=== PATIENT | female | born 1940 | race Caucasian/White ===

== ENCOUNTER 2018-06-07 11:54 | Inpatient (IN) | payer MEDICARE ==
[~2018-06-07] VITALS: Ht 170.2 cm; Wt 125.1 kg
[2018-06-07 12:39] LABS: BASOPHILS 0.3 % (0-2); EOSINOPHILS 3.7 % (0-7); HEMATOCRIT 47.8 % (36.0-48.0); HEMOGLOBIN 15.7 g/dL (12-16); IMMATURE GRANULOCYTES 0.1 % (0-5); LYMPHOCYTES 9.4 % (15-50); MCH 31.2 pg (26.0-34.0); MCHC 32.8 g/dL (31.0-37.0); MEAN PLATELET VOLUME 11.8 fL (7.4-10.4); NEUTROPHILS 76.5 % (40-80); PLATELET COUNT 169 10x3/uL (130-400); RBC 5.03 10x6/uL (4.00-5.40); RDW 13.6 % (11.5-14.5); WBC 6.7 10x3/uL (4.8-10.8)
[2018-06-07 13:04] LABS: ALBUMIN 3.1 g/dL (3.4-5.0); ANION GAP 12.4 mmol/L (8-16); BILIRUBIN - TOTAL 1.76 mg/dL (0.2-1.3); CALCIUM 9.4 mg/dL (8.5-10.1); CARBON DIOXIDE 26.5 mmol/L (21.0-32.0); POTASSIUM - SERUM 3.9 mmol/L (3.5-5.1); PROTEIN - SERUM 7.3 g/dL (6.4-8.2)
[2018-06-07 13:06] LABS: TROPONIN-I 0.052 ng/mL (0.000-0.060)
[2018-06-07 14:00] VITALS: BP 165/61
[2018-06-07 16:00] VITALS: BP 152/79
--- NOTE | 2018-06-07 16:01 | NUR ---
PATIENT REFUSED [facility] CATH
[2018-06-07 18:00] VITALS: BP 141/97
--- NOTE | 2018-06-07 20:00 | NUR ---
LASHAWN COMPLETED AT THIS TIME
--- NOTE | 2018-06-07 22:33 | NUR ---
VANCOMYCIN COMPLETED AT THIS TIME
--- NOTE | 2018-06-07 22:55 | NUR ---
REPORT FROM ISABELLE GARCIA RN
--- NOTE | 2018-06-08 03:20 | NUR ---
LYING IN BED, RESPIRATIONS EVEN AND UNLABORED. CALL LIGHT IN REACH, WILL CONTINUE WITH PLAN OF CARE.
[2018-06-08 04:00] VITALS: BP 198/103
[2018-06-08 06:43] LABS: BASOPHILS 0.3 % (0-2); EOSINOPHILS 3.2 % (0-7); HEMATOCRIT 44.7 % (36.0-48.0); HEMOGLOBIN 14.6 g/dL (12-16); IMMATURE GRANULOCYTES 0.1 % (0-5); LYMPHOCYTES 6.8 % (15-50); MCH 30.9 pg (26.0-34.0); MCHC 32.7 g/dL (31.0-37.0); MCV 94.7 fL (80.0-100.0); MEAN PLATELET VOLUME 12.1 fL (7.4-10.4); MONOCYTES 10.2 % (2-11); NEUTROPHILS 79.4 % (40-80); PLATELET COUNT 186 10x3/uL (130-400); RBC 4.72 10x6/uL (4.00-5.40); RDW 13.8 % (11.5-14.5); WBC 7.2 10x3/uL (4.8-10.8)
[2018-06-08 07:34] LABS: ALBUMIN 2.9 g/dL (3.4-5.0); ANION GAP 13.7 mmol/L (8-16); BILIRUBIN - TOTAL 1.66 mg/dL (0.2-1.3); CALCIUM 9.4 mg/dL (8.5-10.1); CARBON DIOXIDE 27.1 mmol/L (21.0-32.0); CREATININE - SERUM 0.9 mg/dL (0.6-1.3); POTASSIUM - SERUM 3.8 mmol/L (3.5-5.1); PROTEIN - SERUM 6.9 g/dL (6.4-8.2)
--- NOTE | 2018-06-08 07:45 | NUR ---
AM ROUNDS COMPLETED. INTRODUCED MYSELF TO PT PRIMARY RN FOR TODAYS SHIFT. PT IS A&O SITTING UP IN BED RESTING QUIETLY WAITING ON BREAKFAST. SHIFT ASSESSMENT COMLETED. RR APPEAR LABORED BUT PT STATES SHE IS BREATHING FINE. WHEEZING NOTED THROUGHOUT ALL LOBES AND CAN BE HEARD OUTSIDE CHEST WELL. PT DENIES BEING ABLE TO COUGH UP ANYTHING. PT HAS NC @3L THAT SHE KEEPS TAKING OFF, ENCOURAGED HER TO KEEP IT ON AND SHE STATES IT DOESNT HELP BUT SHE WILL KEEP IT ON. BILAT LE ARE VERY SWOLLEN AND THE LEFT ONE IS REDDENED BUT SKIN INTACT. WILL TRY TO ELEVATE TO HELP REDUCE SWELLING. PT DENIES ANY CURRENT NEEDS AT THIS TIME. CL IN REACH, BED IN LOWEST, SIDE RAILS X2. WILL CTM.
[2018-06-08 08:45] VITALS: BP 126/87
--- NOTE | 2018-06-08 10:29 | NUR ---
PT CONTINUOUSLY PULLING HER OXYGEN OFF AND STATES SHE DOESNT NEED IT. PULSE OX DOWN TO 86% TOLD PT ITS IMPORTANT FOR HER TO WEAR IT AND SHE STATES "WELL IM NOT GOING TO ALL THE TIME ITS MY SINUS STUFF AND OXYGEN MAKES ME NOT BREATHE" HARD TO RATIONALIZE WITH PT IS CONSTANTLY ARGUING WITH EVERYTHING WE SAY AND TRY TO DO. PT IS VERY RUDE AND NONCOMPLIANT. WILL CONTINUE TO TRY OUR BEST WITH WHAT SHE WILL ALLOW.
[2018-06-08 12:13] VITALS: BP 154/88
--- NOTE | 2018-06-08 13:29 | NUR ---
PT CALLED REQUESTING BEDPAN. ASSISTED PT ON AND SHE HAD SEMI FORMED AND SEMI LOOSE BROWN STOOL. PTS JANELLE AREA/GROIN IS VERY EXCORIATED AND REDDENED SHE IS REFUSING TO LET US GIVE HER A BATH RIGHT NOW AND STATES SHE NEEDS AT CREAM FOR IT HOWEVER ITS ALREADY MOIST AND NEEDS TO DEFINITELY BE DRY AND KEEP CLEAN AND DRY. PT IS VERY PARTICULAR AND REFUSES WHAT WE NEED TO DO. EXPLAINATION AND RISK FOR WORSENING SKIN/BREAKDOWN HAS BEEN TAUGHT WILL ENCOURAGE BETTER HYGIENE AND SKIN CARE. PT SITTING UP IN BED WAITING ON BREATHING TX STILL WHEEZING ALL OVER. PT AGREED TO WEAR O2 FOR NOW. NC @3.5L IN PLACE. WILL CTM.
--- NOTE | 2018-06-08 13:36 | NUR ---
PT IS BEING UNREASONABLE. THREW DIRTY LINENS AT THE CREATIVE GURU AND YELLED AT HER AND WILL NOT ALLOW HER TO PERFORM THE TEST WE NEED FOR HER LEGS. EXPLAINED MULTIPLE TIMES THE REASONING AND ASKED IF THE PT WANTS OUR HELP AND SHE STATES "YES BUT YOUR NOT DOING THAT TEST, SO LEAVE ME ALONE" WILL DISCUSS WITH PRIMARY AND SEE IF THEY CAN REASON WITH HER SHE IS CONSTANTLY FIGHTING US FOR THE MOST BASIC THINGS AND DOESNT APPEAR TO WANT OUR HELP.
[2018-06-08 15:33] VITALS: BMI 39.1
[2018-06-08 16:12] VITALS: BP 136/85
--- NOTE | 2018-06-08 16:15 | NUR ---
REFUSED SCD'S PER MAYITO/RN
--- NOTE | 2018-06-08 16:32 | NUR ---
PT HAD HER OXYGEN OFF AGAIN AND STATES "WELL I WAS SLEEPING, I DONT KNOW" PT ALLOWED ME TO PUT IT BACK ON. NC @3.5L IN PLACE. NO CURRENT NEEDS. WILL CTM.
--- NOTE | 2018-06-08 17:18 | NUR ---
PTS L.AC PIV IS LEAKING AND FELL OUT. D/C WITH CATHETER TIP FULLY INTACT. PT IS REFUSING FOR ME TO PLACE A NEW PIV AT THIS TIME. SHE IS ALSO WHEEZING AND APPEARS LABORED WITH RR HOWEVER IS YELLING AT ME "LEAVE ME ALONE FOR A MINUTE I DONT WANT CONNECTED YOU CAN DO IT LATER" PT IS REFUSING TO WEAR HER OXYGEN AND ALLOW ME TO PLACE NEW PIV AT THIS TIME. PRIMARY ON FLOOR WILL NOTIFY THEM AND TRY AGAIN IN A LITTLE BIT.
--- NOTE | 2018-06-08 17:45 | NUR ---
AT BEDSIDE DISCUSSING IN LENGTH DISEASE PROCESS AND HOW IMPORTANT TREATMENT AND COOPERATION IS. PT STATES "WELL I LEFT MY ASSHOLE AND IM NOT PUTTING UP WITH HER EITHER" SHE POINTED AT ME. EXPLAINED TO PT THAT I CAN HAVE HER HAVE A DIFFERENT NURSE TOMORROW. PT AGREED TO ALLOW SOMEONE ELSE TO STICK HER. WILL HAVE SOMEONE COME.
--- NOTE | 2018-06-08 18:25 | NUR ---
PT SOILED ALL OF HER LINENS. PHARMACY DISTRICT MANAGER AT BEDSIDE AND CLEANED HER UP AND CHANGED OUT ALL LINENS. PT VOICED THANKS AND DENIES ANY FURTHER NEEDS AT THIS TIME. CL IN REACH, BED IN LOWEST, SIDE RAILS X2. WILL CTM.
--- NOTE | 2018-06-08 18:51 | NUR ---
22 GUAGE PIV STARTED TO R.FA X1 STICK BY JACLYN ESPINOSA. PT NOW RECIEVING HER ANBX. DENIES ANY CURRENT NEEDS. WILL CTM.
[2018-06-08 19:38] LABS: INR 1.32 (0.85-1.17); PROTIME 15.9 SECONDS (11.6-15.0)
[2018-06-08 19:39] LABS: APTT 36.9 SECONDS (22.8-39.4)
[2018-06-08 20:00] VITALS: BP 137/70
--- NOTE | 2018-06-08 20:15 | NUR ---
PT SITTING UP IN BED ALERT AND ORIENTED. PT STATES SHE WILL PUT OXYGEN ON IN A MINUTE. PT STATES SHE CAN'T BREATH WITH IT ON.PT SAT. 88% EDUCATED PT ON THE IMPORTANCE OF WEARING O2. PT UNDERSTANDS. RESPIRATORY IN GIVING UPDRAFT AND ENCOURGED AND EDUCATED PT ON WAERING O2. PT REFUSING TO KEEP ON. BED LOW CALL LIGHT WITHIN REACH. WILL CONTINUE TO MONITOR.
--- NOTE | 2018-06-08 20:42 | NUR ---
20G MICHELLE ESTABLISHED IN LEFT WRIS X 1 STICK. IV PATENT, SALINE LOCKED, SWAB CAP IN USE. WAS ABLE TO GET PT TO PUT O2 ON. O2 SAT 97%. PT DENIES ANY NEEDS OR PAIN AT THIS TIME. WILL CONTINUE YO MONITOR.
--- NOTE | 2018-06-08 22:44 | NUR ---
PT REFUSES TO GO TO CTA. EDUCATED PT ON THE IMPORTANCE OF SCAN. PT STATES UNDERSTANDING. PT REFUSED FOR CT ALSO. PT SITTING UP IN BED REFUSING TO WEAR O2. EDUCATED PT ON IMPORTANCE OF O2. BED LOW CALL LIGHT WITHIN REACH. WILL CONTINUE TO MONITOR.
[2018-06-09] VITALS: BP 130/68
[2018-06-09 04:00] VITALS: BP 164/68
--- NOTE | 2018-06-09 04:22 | NUR ---
PT AWAKE ALERT AND ORIENTED SITTING UP IN BED. PT DENIES ANY NEEDS OR PAIN AT THIS TIME. BED LOW CALL LIGHT WITHIN REACH. WILL CONTINUE TO MONITOR.
[2018-06-09 05:45] LABS: BASOPHILS 0.5 % (0-2); EOSINOPHILS 1.7 % (0-7); HEMATOCRIT 43.1 % (36.0-48.0); IMMATURE GRANULOCYTES 0.3 % (0-5); MCHC 32.5 g/dL (31.0-37.0); MCV 95.6 fL (80.0-100.0); MEAN PLATELET VOLUME 12.3 fL (7.4-10.4); MONOCYTES 10.7 % (2-11); NEUTROPHILS 78.8 % (40-80); PLATELET COUNT 173 10x3/uL (130-400); RBC 4.51 10x6/uL (4.00-5.40); WBC 6.6 10x3/uL (4.8-10.8)
[2018-06-09 06:21] LABS: ALBUMIN 2.9 g/dL (3.4-5.0); ANION GAP 14.4 mmol/L (8-16); BILIRUBIN - TOTAL 1.81 mg/dL (0.2-1.3); C-REACTIVE PROTEIN 5.2 mg/dL (0.0-0.9); CALCIUM 9.2 mg/dL (8.5-10.1); CARBON DIOXIDE 27.2 mmol/L (21.0-32.0); CHOL - HDL RATIO 3.1 ratio (2.3-4.1); CREATININE - SERUM 1.1 mg/dL (0.6-1.3); LDL-HDL RATIO 1.7 ratio (1.5-3.5); POTASSIUM - SERUM 3.6 mmol/L (3.5-5.1); PROTEIN - SERUM 6.8 g/dL (6.4-8.2)
--- NOTE | 2018-06-09 07:26 | NUR ---
AM ROUNDS COMPLETED. INTRODUCED MYSELF TO PT PRIMARY RN FOR TODAYS SHIFT. PT IS A&O RESTING QUIETLY IN BED AT THIS TIME. SHIFT ASSESSMENT COMPLETED. WILL REVIEW CHART AND PULL MORNING MEDICATIONS AND CPOC. NO CURRENT NEEDS. CL IN REACH.
--- NOTE | 2018-06-09 08:00 | NUR ---
PT APPARENTLY REFUSED CTA LAST NIGHT BUT NOW IS IN AGGREEANCE. PT LEAVING FOR CT SCAN NOW. NO CURRENT NEEDS.
[2018-06-09 08:04] LABS: ERYTHROCYTE SEDIMENTATION RATE 39 mm/hr (0-30)
--- NOTE | 2018-06-09 08:29 | NUR ---
PT BACK FROM CT AND I RECONNECTED HER TO HER IV ANBX INFUSING VIA R.FA PIV. PT IS WHEEZING THROUGHOUT ALL LOBES AND IS APPEARS TO BE LABORED BREATHING NC @3.5L IN PLACE PT STATES SHE CANT BREATHE WHEN LYING FLAT BUT FEELS LIKE SHE IS BREATHING OKAY RIGHT NOW. PULSE OX 93% WILL CHECK WITH RT ABOUT PRN TREATMENTS OR NEXT DOSE. PT VOICED THANKS. PT SITTING ERECT IN BED DENIES ANY CURRENT NEEDS BUT WANTS TO STAY SITTING UP. CL IN REACH, BED IN LOWEST, SIDE RAILS X2. PT STILL NPO WILL DISCUSS WITH FOR PLANS AND SEE ABOUT SURGERY PLANNING OR GAME PLAN.
[2018-06-09 08:45] VITALS: BP 181/81
[2018-06-09 09:22] VITALS: Ht 170.2 cm; Wt 125.1 kg
--- NOTE | 2018-06-09 10:21 | NUR ---
NEW ORDERS OBTAINED FOR HEPARIN DRIP. CANT START UNTIL APTT, HAS BEEN DRAWN STAT ORDERS ARE IN SINCE 10AM AND STILL NOT DONE. PAGED LAB AND THEY STATE SOMEONE WILL BE BY SHORTLY!
[2018-06-09 11:13] LABS: APTT 31.6 SECONDS (22.8-39.4); INR 1.22 (0.85-1.17); PROTIME 14.9 SECONDS (11.6-15.0)
[2018-06-09 11:14] VITALS: BP 161/77
--- NOTE | 2018-06-09 11:35 | NUR ---
FINALLY REC'D RESULTS FROM LAB AND CAN START HEPARIN DRIP. INITIATED DRIP @8ML/HR ORDERED 800UNITS. INFUSING VIA L.HAND PIV, ALSO INITIATED 3000 UNIT BOLUS FOR APTT >40. WILL FOLLOW DRIP PROTOCOL AND CPOC.
[2018-06-09 12:07] LABS: HEMATOCRIT 41.8 % (36.0-48.0); HEMOGLOBIN 13.6 g/dL (12-16); MCHC 32.5 g/dL (31.0-37.0); MCV 95.2 fL (80.0-100.0); MEAN PLATELET VOLUME 11.5 fL (7.4-10.4); RBC 4.39 10x6/uL (4.00-5.40); RDW 13.8 % (11.5-14.5); WBC 6.5 10x3/uL (4.8-10.8)
--- NOTE | 2018-06-09 14:01 | NUR ---
PT RESTING QUIETLY IN BED WITH EYES CLOSED. RR NONLABORED WITH NC @4L IN PLACE. HEPARIN DRIP INFUSING STILL WITH NO ISSUES. NO CURRENT NEEDS. WILL CTM.
--- NOTE | 2018-06-09 14:45 | NUR ---
BLASTING ENTRY SPECIALIST NOTIFIED ME THAT PT IS YELLING AT THEM AND REFUSING VITAL SIGNS AND CARE AND STATING SHE IS CALLING THE ASSISTANT PRESSMAN BECAUSE WE ARENT FEEDING HER ETC. UPON ENTERING ROOM I WAS ABLE TO CALM PT DOWN. SHE IS VERY EMOTIONAL AND JUST OVERWHELMED. C/O BEING NPO I EXPLAINED IN DETAIL REASONING AND SHE VERBALIZED UNDERSTANDING BUT STATES SHE DOESNT CARE. WILL PROVIDE ORAL CARE FOR DRY MOUTH AND SEE IF SHE WILL COOPERATE. NO CURRENT NEEDS. WILL CTM.
--- NOTE | 2018-06-09 15:11 | NUR ---
SIMA WITH CT CALLED TO INFORM ME THAT PT CANT HAVE CT OF ABDOMEN TODAY R/T TOO MUCH CONTRAST FOR THE DAY. THEY WILL PUT ON SCHEDULE FOR TOMORROW.
--- NOTE | 2018-06-09 15:56 | NUR ---
ROUNDING AND STATES PT CAN EAT AND DRINK. ORDERS PLACED. WILL CTM.
--- NOTE | 2018-06-09 16:08 | NUR ---
MRI STAFF CALLED INQUIRING IF THE MRI THAT WAS ORDERED CAN BE DONE TOMORROW. DISCUSSED WITH PRIMARY AND THIS TEST IS NOT STAT AND IS ABLE TO BE MOVED IF IT HAS TOO.
--- NOTE | 2018-06-09 17:32 | NUR ---
OT NOTE: PT COMPLETED HYGIENE AND GROOMING TASKS WITH MOD Emily. THANK YOU, ISABEL ANDREW
--- NOTE | 2018-06-09 18:27 | NUR ---
DID NOT COLLECT URINE R/T PT CONTAMINATING SOURCE. DID NOT COLLECT RESPIRATORY PT DID NOT COUGH ANYTHING UP.
--- NOTE | 2018-06-09 18:29 | NUR ---
PAGED LAB PTS TIMED HEPARIN IS OVER AN HOUR LATE, THEY STATE SOMEONE IS COMING SOON. WILL CONTINUE TO WAIT AND DISCUSS WITH PRIMARY THE CONSTANT DELAY IN TIMED COAG STUDIES FOR HEPARIN DRIP.
[2018-06-09 20:00] VITALS: BP 138/73
--- NOTE | 2018-06-09 21:19 | NUR ---
PT'S 20G IV INFILTRATED. IV DC'D WITH CATHETER TIP IN PLACE. PT SITTING UP IN BED ALERT AND ORIENTED. HEPERIN DRIP CHANGED TO RIGHT FOREARM IV. PT DENIES ANY PAIN OR NEEDS AT THIS TIME. BED LOW CALL LIGHT WITHIN REACH. WILL CONTINUE TO MONITOR.
--- NOTE | 2018-06-09 23:37 | NUR ---
LYING IN BED WITH CALL LIGHT IN REACH. WILL CONTINUE TO MONITOR.
[2018-06-10 00:14] VITALS: BP 148/80
[2018-06-10 02:29] LABS: HEMATOCRIT 42.6 % (36.0-48.0); MCH 31.3 pg (26.0-34.0); MCHC 32.9 g/dL (31.0-37.0); MCV 95.1 fL (80.0-100.0); MEAN PLATELET VOLUME 12.3 fL (7.4-10.4); RBC 4.48 10x6/uL (4.00-5.40); RDW 13.8 % (11.5-14.5); WBC 5.7 10x3/uL (4.8-10.8)
[2018-06-10 04:00] VITALS: BP 121/76
[2018-06-10 06:38] LABS: BASOPHILS 0.7 % (0-2); EOSINOPHILS 4.1 % (0-7); HEMATOCRIT 41.8 % (36.0-48.0); HEMOGLOBIN 13.6 g/dL (12-16); IMMATURE GRANULOCYTES 0.2 % (0-5); LYMPHOCYTES 9.5 % (15-50); MCH 30.8 pg (26.0-34.0); MCHC 32.5 g/dL (31.0-37.0); MCV 94.8 fL (80.0-100.0); MEAN PLATELET VOLUME 11.5 fL (7.4-10.4); MONOCYTES 9.3 % (2-11); NEUTROPHILS 76.2 % (40-80); PLATELET COUNT 175 10x3/uL (130-400); RBC 4.41 10x6/uL (4.00-5.40); RDW 13.9 % (11.5-14.5); WBC 5.6 10x3/uL (4.8-10.8)
[2018-06-10 06:45] LABS: INR 1.3 (0.85-1.17); PROTIME 15.6 SECONDS (11.6-15.0)
[2018-06-10 07:00] LABS: ALBUMIN 2.8 g/dL (3.4-5.0); ANION GAP 14.2 mmol/L (8-16); BILIRUBIN - TOTAL 1.92 mg/dL (0.2-1.3); CALCIUM 8.8 mg/dL (8.5-10.1); CARBON DIOXIDE 27.3 mmol/L (21.0-32.0); POTASSIUM - SERUM 3.5 mmol/L (3.5-5.1); PROTEIN - SERUM 6.8 g/dL (6.4-8.2)
[2018-06-10 08:03] VITALS: BP 147/67
[2018-06-10 08:06] LABS: APTT 100.3 SECONDS (22.8-39.4)
--- NOTE | 2018-06-10 08:07 | NUR ---
TALKED WITH PATIENT IN LENGTH ABOUT LUNG MASS BIOPSY. PATIENT DOES NOT WANT THIS UNTIL HER PHYSCIAN SHOWS HER IMAGES OF MASS AND EXPLAINS WHAT ALL HER PROBLEMS ARE AT PRESENT. PATIENT VERY FRUSTRATED ABOUT LACK OF COMMUNICATION FROM HER PHYSCIANS ABOUT HER PRESENT PHYSICAL STATUS. NOTIFIED MAYITO.
--- NOTE | 2018-06-10 08:24 | NUR ---
PT LEAVING FOR CT SCAN NOW. DENIES ANY CURRENT NEEDS.
--- NOTE | 2018-06-10 08:50 | NUR ---
PROVIDED PT WITH AM MEDICATIONS. PT REFUSED HALF OF THEM AND STATES THEY DONT HELP, TEACHING PROVIDED BUT WILL CONTINUE TO ENCOURAGE. PTS RR APPEAR MORE LABORED TODAY AND SHE STATES SHE DOESNT FEEL LIKE SHE CAN GET A COMPLETE DEEP BREATH. LUNGS STILL HAVE WHEEZING THROUGHOUT ALL LOBES WITH RLL VERY DIMINISHED. PTS APTT RESULTED 100.3 WILL HOLD FOR 30MINS AND THEN DECREASE BY 100 UNITS PER HEPARIN PROTOCOL. PT STATES SHE THINKS A FAN WILL HELP PAGED MATERIALS AND THEY WILL PROVIDE ONE. PT VOICED THANKS AND DENIES ANY CURRENT PAIN OR NEEDS AT THIS TIME. CL IN REACH, BED IN LOWEST, SIDE RAILS X2. WILL CPOC.
--- NOTE | 2018-06-10 09:15 | NUR ---
PTS HEPARIN DRIP WAS ON HOLD FOR 30MINS I RESTARTED IT AT DECREASED RATE OF 8ML/HR. WILL CONTINUE WITH HEPARIN DRIP PER PROTOCOL.
[2018-06-10 11:30] VITALS: BP 144/72
[2018-06-10 14:29] LABS: ANA REFLEX - DIRECT Negative (Negative)
[2018-06-10 15:29] VITALS: BP 163/68
--- NOTE | 2018-06-10 15:52 | NUR ---
PT STILL VERY SKEPTICAL AND RESISTANT TO OUR CARE. PT IS TRYING TO REFUSE HER LAB DRAW FOR HER TIMED "APTT" I DISCUSSED WITH HER THE IMPORTANCE AND SHE IS JUST TIRED OF ALL THE LAB DRAWS AND BRUISING FROM IT. I DISCUSSED WITH PRIMARY AND PT AND SHE ALLOWED THIS LAB DRAW BUT IS GOING TO HAVE A PICC LINE PLACED.
--- NOTE | 2018-06-10 15:56 | NUR ---
APTT BACK AND INCREASED DRIP BY 100UNITS. DRIP NOW INFUSING AT 9ML/HR. WILL CONTINUE WITH PROTOCOL.
--- NOTE | 2018-06-10 16:54 | NUR ---
OT NOTE: PT COMPLETED BUE AROM AXS AND BED MOB WITH MIN A. PT WAS DISTRACTED WITH PHONE SERVICE AND PHONE ISSUES. THANK YOU, ISABEL ANDREW
--- NOTE | 2018-06-10 17:32 | NUR ---
CONSENTS OBTAINED FOR PICC LINE AND VASCULAR NURSE AT BEDSIDE PERFORMED PLACEMENT. PT NOW HAS A PICC LINE TO HER L.UPPER ARM. BIOPATCH IN PLACE, DRSG ADHERED TO SKIN. NO CURRENT NEEDS. WILL CTM.
--- NOTE | 2018-06-10 18:17 | NUR ---
DID NOT COLLECT RESPIRATORY SPECIMEN R/T PT NOT ABLE TO PROVIDE IT.
--- NOTE | 2018-06-10 18:45 | NUR ---
PT CALLED NEEDING TO USE BEDPAN. ASSISTED PT ON BEDPAN AND HER LINENS WERE ALREADY SOILED. PT STATES SHE WENT EARLIER BUT DIDNT WANT US TO CHANGE HER BECAUSE SHE GETS SO SOB. PT IS UNABLE FOR US TO LAY HER HEAD DOWN TO CHANGE ALL LINENS AND ITS JUST A MESS. ASKED HER IF SHE COULD GET TO A BEDSIDE COMMODE AND SHE SAID SHE WILL TRY. PT STOOD ALL ON HER OWN AND PIVOTED TO CHAIR AND HAD LARGE BOWEL MOVEMENT AND URINATED. CLEANED PT UP AND ASSISTED HER BACK INTO BED. PT IS VERY LABORED BREATHING, PUT A FAN ON HER AND SAT HER UP AT 90DEGREES AND SHE IS CATCHING HER BREATH. MRI CALLED ASKING IF PT CAN DO HER QUESTIONAIRE AND SHE STATES SHE MAY DO IT TOMORROW BUT CANT LAY FLAT TO PERFORM TEST. WILL DISCUSS WITH PRIMARY TOMORROW BECAUSE ITS LIKELY SHE WILL NOT BE ABLE TO DO IT AT ALL. PT VOICED THANKS AND DENIES ANY FURTHER NEEDS AT THIS TIME. CL IN REACH, BED IN LOWEST, SIDE RAILS X2 AND JARAD PAD IN PLACE. WILL CTM.
--- NOTE | 2018-06-10 19:45 | NUR ---
RESUMING CARE. PT LAYING IN BED AT O2 ON @3L BREATH SOUNDS LABORED BILATERAL SWELLEN IN BOTH LEGS , RT FA IV W/ NS AND A PICC LINE RUNING HEPARIN @9ML NO C/O OF PAIN OR DISTRESS NOTED CALL LIGHT IN REACH WILL CONT TO MONITOR
[2018-06-10 20:00] VITALS: BP 167/80
--- NOTE | 2018-06-10 21:30 | NUR ---
PT REFUSED ALL MEDS EXCEPT FOR THE MUCINEX AND ZOSYN , STATED SHE WANTED ROBITUSSIN THATS THE ONLY THING THAT HELPS HER AND THAT WOULD BE HER LAST TIME TAKING THAT MUCINEX , I TRIED TO EDUCATE THE PT ON THE IMPORTANCE OF EACH MEDICATION , PT STATED " YOU CANT REALLY TELL ME ANYTHING ABOUT THIS STUFF I KHOW HOW THIS STUFF WORKS" SHE ALSO WANTED COUGH DROPS ORDER WAS PUT IN BUT WAS NEVER BROUGHT UP BY PHARMACY CL IN REACH WILL CONT TO MONITOR
--- NOTE | 2018-06-10 22:20 | NUR ---
APTT 70.8 NO CHANGE WILL RECHECK IN THE AM LABS
[2018-06-11] VITALS: BP 183/75
[2018-06-11 03:11] LABS: MYCOPLASMA PNEUMO IGG 727 U/mL (0-99)
[2018-06-11 04:00] VITALS: BP 183/92
--- NOTE | 2018-06-11 04:21 | NUR ---
BIOLOGICAL ENGINEER AT BEDSIDE TO OBTAIN VITALS, CALL LIGHT IN REACH. WILL CONTINUE WITH PLAN OF CARE.
[2018-06-11 06:27] LABS: BASOPHILS 0.4 % (0-2); EOSINOPHILS 3.4 % (0-7); HEMOGLOBIN 13.4 g/dL (12-16); LYMPHOCYTES 9.2 % (15-50); MCH 30.5 pg (26.0-34.0); MCHC 31.9 g/dL (31.0-37.0); MCV 95.7 fL (80.0-100.0); MEAN PLATELET VOLUME 11.7 fL (7.4-10.4); MONOCYTES 10.2 % (2-11); NEUTROPHILS 76.8 % (40-80); PLATELET COUNT 177 10x3/uL (130-400); RBC 4.39 10x6/uL (4.00-5.40); RDW 13.9 % (11.5-14.5)
[2018-06-11 06:55] LABS: ALBUMIN 2.8 g/dL (3.4-5.0); ANION GAP 11.9 mmol/L (8-16); BILIRUBIN - TOTAL 1.92 mg/dL (0.2-1.3); CARBON DIOXIDE 28.6 mmol/L (21.0-32.0); CREATININE - SERUM 0.9 mg/dL (0.6-1.3); POTASSIUM - SERUM 3.5 mmol/L (3.5-5.1); PROTEIN - SERUM 6.7 g/dL (6.4-8.2); VANCOMYCIN - TROUGH 20.2 ug/mL (10.0-20.0)
[2018-06-11 09:21] VITALS: BP 171/77
--- NOTE | 2018-06-11 10:51 | NUR ---
PT REFUSED HER MORNING PILLS AGAIN. SHE STATES "WELL MAYBE LATER BUT IM NOT A MORNING PERSON AND JUST WOKE UP SO JUST WAIT HONEY" SHIFT ASSESSMENT COMPLETED AND IS ABOUT THE SAME HOWEVER PTS BILAT LEGS STILL VERY SWOLLEN BUT HER TOES ON EACH FOOT ARE COLD TO THE TOUCH AND DISCOLORED PURPLE/RED, CAP REFILL 8SECS BILAT UNABLE TO PALPATE PULSES BUT I WAS ABLE TO DOPPLER AND PT HAS STRONG NORMAL FLOW TO R.FOOT HOWEVER LEFT IS WEAKER BUT IS THERE. PT REALLY WOULD BENEFIT FROM ELEVATING HER LEGS BUT SHE REFUSES. PTS RR STILL LABORED USUAL FOR HER SHE IS ON/OFF WITH HER NC. PULSE OX 94% WITH NC @3L CURRENTLY BUT SHE IS STILL LABORED WITH SEVERE WHEEZING NOTED THROUGHOUT ALL LOBES WITH VERY DIMINISHED RLL SOUNDS. PTS APTT RESULTED AND THERE IS NO CHANGE NEEDED PER HEPARIN DRIP PROTOCOL SO IT WILL REMAIN @9ML/HR AND RECHECK LAB IN AM. PT IS VERY SICK AND SHE IS A&O AND AWARE HOWEVER STILL REMAINS IN DENIAL AND VERY SKEPTICAL. WILL ENCOUARGE HER AND KEEP TRYING TO DO WHAT SHE NEEDS SHE ALLOWS AND WILL CONTINUE TO TEACH HER SO SHE IS UNDERSTANDING AND WILL LET US HELP HER. CL IN REACH, BED IN LOWEST, SIDE RAILS X2. NO CURRENT NEEDS. WILL CTM.
--- NOTE | 2018-06-11 12:28 | NUR ---
PT DECIDED SHE WANTED HER ANXIETY MEDICATION SHE STATES HER FRIEND "PISSED HER OFF" ON THE PHONE. PT SITTING UP IN BED RESTING QUIETLY. CL IN REACH, WILL CTM.
[2018-06-11 12:52] VITALS: BP 173/86
--- NOTE | 2018-06-11 13:20 | NUR ---
Nutrition follow-up: Low sodium diet due to pt with edema to bilateral lower extremities PO intake poor; pt is refusing more meals than she is eating Pt is also refusing medication and nursing care No wt due to pt refusing to be weighed +BM RDN will order Mighty shakes with meals and encourage increased po intake. RDN following.
--- NOTE | 2018-06-11 16:00 | NUR ---
PT SITTING UP ON EDGE OF BED BREATHING REMAINS THE SAME AND ALWAYS APPEARS LABORED. NC @3.5L WITH PULSE OX 95% WHEEZING STILL VERY OBVIOUS. PT DENIES ANY CURRENT PAIN OR NEEDS. CL IN REACH. WILL CTM.
[2018-06-11 20:00] VITALS: BP 159/77
--- NOTE | 2018-06-11 20:00 | NUR ---
PT SITTING UP IN BED ALERT AND ORIENTED. PT SOB RESPIRATIONS 18. PT DENIES ANY NEEDS OR PAIN AT THIS TIME. BED LOW, SIDE RAILS UPX2, CALL LIGHT WITHIN REACH. WILL CONTINUE TO MONITOR.
[2018-06-12] VITALS: BP 181/79
--- NOTE | 2018-06-12 02:35 | NUR ---
PT RESTING COMFORTABLY IN BED. RESPIRATIONS SHALLOW AND UNLABORED. DID CVL BLOOD DRAW. PT DENIES ANY PAIN OR NEEDS AT THIS TIME. WILL CONTINUE TO MONITOR. BED LOW CALL LIGHT WITHIN REACH.
[2018-06-12 02:47] LABS: HEMATOCRIT 38.6 % (36.0-48.0); HEMOGLOBIN 12.4 g/dL (12-16); MCH 30.5 pg (26.0-34.0); MCHC 32.1 g/dL (31.0-37.0); MCV 94.8 fL (80.0-100.0); MEAN PLATELET VOLUME 11.5 fL (7.4-10.4); RBC 4.07 10x6/uL (4.00-5.40); RDW 13.6 % (11.5-14.5); WBC 4.4 10x3/uL (4.8-10.8)
--- NOTE | 2018-06-12 03:39 | NUR ---
RN NOTE: PATIENT APPEARS TO BE SLEEPING. RESPIRATIONS ARE EVEN AND UNLABORED. NO S/S OF DISTRESS. CALL LIGHT WITHIN REACH. WILL CPOC.
[2018-06-12 04:00] VITALS: BP 184/71
[2018-06-12 05:22] LABS: BASOPHILS 0.7 % (0-2); EOSINOPHILS 3.2 % (0-7); HEMATOCRIT 42.6 % (36.0-48.0); HEMOGLOBIN 13.8 g/dL (12-16); IMMATURE GRANULOCYTES 0.2 % (0-5); LYMPHOCYTES 8.9 % (15-50); MCH 30.8 pg (26.0-34.0); MCHC 32.4 g/dL (31.0-37.0); MCV 95.1 fL (80.0-100.0); MEAN PLATELET VOLUME 12.5 fL (7.4-10.4); MONOCYTES 9.9 % (2-11); NEUTROPHILS 77.1 % (40-80); PLATELET COUNT 188 10x3/uL (130-400); RBC 4.48 10x6/uL (4.00-5.40); RDW 13.6 % (11.5-14.5); WBC 5.4 10x3/uL (4.8-10.8)
--- NOTE | 2018-06-12 05:45 | NUR ---
PT UP TO BEDSIDE CAMMODE AND BEDCHANGE. PT GOT VERY SOB AND DYSPNNIC. MOVED PT BACK INTO BED AND TURNED O2 UP TO 4L. PT 91% WITH LABORED BREATHING. PT WHEEZING BREATHING IN AND OUT. WILL CONTINUE TO MONITOR.
[2018-06-12 06:01] LABS: ALBUMIN 2.8 g/dL (3.4-5.0); BILIRUBIN - TOTAL 1.99 mg/dL (0.2-1.3); CALCIUM 8.8 mg/dL (8.5-10.1); CARBON DIOXIDE 28.5 mmol/L (21.0-32.0); CREATININE - SERUM 0.9 mg/dL (0.6-1.3); POTASSIUM - SERUM 3.5 mmol/L (3.5-5.1); PROTEIN - SERUM 6.9 g/dL (6.4-8.2)
[2018-06-12 10:34] VITALS: BP 170/91
--- NOTE | 2018-06-12 10:41 | NUR ---
RESTS WITH EYES CLOSED. RESP UL ON . IV PATENT. CALL LIGHT IN REACH. WILL MONITOR.
--- NOTE | 2018-06-12 10:57 | NUR ---
PATIENT IS ALERT AND AWAKE. SHE IS FRUSTRATED THAT SHE IS NOT GETTING BETTER. HER DAUGHTER IS COMING TO VISIT TODAY. SHE HAS ANXIETY AND SHORTNESS OF BREATH AND SHE IS REFUSING HER XANAX.
--- NOTE | 2018-06-12 12:36 | NUR ---
PTT IS 77.5 AND THERE FORE ACCORDING TO IV HEPARIN PROTOCAL THERE IS NO CHANGE.
[2018-06-12 13:06] VITALS: BP 147/70
--- NOTE | 2018-06-12 14:51 | NUR ---
PATIENT IS REFUSING TO HAVE HER BED CHANGED. WE HAVE GONE IN THE ROOM SEVERAL TIMES, AND ASKED HER TO CHANGE HER BEDDING. SHE SAID" I NEED YOU TO LEAVE ME ALONE RIGHT NOW. PLEASE LEAVE THE ROOM RIGHT NOW." AND " WE CAN DO IT LATER. I WILL LET YOU KNOW WHEN."
[2018-06-12 16:17] VITALS: BP 150/77
--- NOTE | 2018-06-12 19:46 | NUR ---
FULL HEAD TO TOE ASSESSMENT DONE. HEAD TO TOE ASSESSMENT CHARTED AND THEN THE COMPUTER LOCKED ME OUT. I WAS NOT ABLE TO GET IN AND COMPLETE MY ASSESSMENT BECAUSE THE COMPUTER HAS LOCKED ME OUT. THERE HAVE NOT BEEN MAJOR CHANGES FROM THE PREVIOUS ASSESSMENT. +3 EDEMA ON LOWER EXTREMITIES. WHEEZING AND CRACKLES HEARD IN LUNGS BILATERALLY. PATIENT IS INCONTINENT IN THE BED HOWEVER SHE IS SO SHORT OF BREATH THAT SHE DOES NOT WANT TO BE UP TO BEDSIDE COMMODE OR EVEN ROLLED TO CHANGE HER BEDDING. SHE IS ON 9ML / HR HEPARIN DRIP. SHE HAS NOT BEEN EATTING TODAY. SHE HAS BEEN REFUSING HER XANAX.
[2018-06-12 19:54] VITALS: BP 168/82
--- NOTE | 2018-06-12 21:10 | NUR ---
REFUSED MUCINEX AND XANAX. ACCEPTED TESSALON RADHA AND SINGULAR AFTER EXPLAINING THE PURPOSE OF EACH MED AND HOW IT WILL HELP TO RELIEVE HER RESPIRATORY SYMPTOMS. STATED "SIPS OF COLA THINS MY MUCUS BETTER AND DON'T WANT THE MUCINEX".
--- NOTE | 2018-06-12 22:00 | NUR ---
RESTING WITH EYES CLOSED. NO SIGNS/SYMPTOMS OF DISTRESS OR DISCOMFORT. WILL CONT TO MONITOR CLOSELY.
--- NOTE | 2018-06-13 00:40 | NUR ---
REFUSES TO BE NPO. REQUESTING WATER. STATED "I AM NOT GOING ALL NIGHT WITHOUT ANYTHING TO DRINK". GAVE HER A SIP OF WATER AND PLACED CUP BY THE SINK.
[2018-06-13 03:44] VITALS: BP 179/74
[2018-06-13 05:27] LABS: BASOPHILS 0.5 % (0-2); EOSINOPHILS 3.4 % (0-7); HEMOGLOBIN 13.6 g/dL (12-16); IMMATURE GRANULOCYTES 0.2 % (0-5); LYMPHOCYTES 7.2 % (15-50); MCH 31.1 pg (26.0-34.0); MCHC 32.4 g/dL (31.0-37.0); MCV 95.9 fL (80.0-100.0); MEAN PLATELET VOLUME 11.8 fL (7.4-10.4); MONOCYTES 8.8 % (2-11); NEUTROPHILS 79.9 % (40-80); PLATELET COUNT 190 10x3/uL (130-400); RBC 4.38 10x6/uL (4.00-5.40); RDW 13.8 % (11.5-14.5); WBC 6.1 10x3/uL (4.8-10.8)
[2018-06-13 05:45] LABS: ALBUMIN 2.6 g/dL (3.4-5.0); ANION GAP 12.3 mmol/L (8-16); BILIRUBIN - TOTAL 1.84 mg/dL (0.2-1.3); CALCIUM 8.9 mg/dL (8.5-10.1); CARBON DIOXIDE 28.2 mmol/L (21.0-32.0); CREATININE - SERUM 0.9 mg/dL (0.6-1.3); POTASSIUM - SERUM 3.5 mmol/L (3.5-5.1); PROTEIN - SERUM 6.6 g/dL (6.4-8.2); VANCOMYCIN - TROUGH 15.8 ug/mL (10.0-20.0)
--- NOTE | 2018-06-13 06:00 | NUR ---
REFUSED BATH. INCONTINENT OF URINE AND HAS BEEN USING WASHCLOTHS FOR PADS TO SOAK UP THE URINE.
--- NOTE | 2018-06-13 08:03 | NUR ---
RESUMING PT CARE, PT LAYING IN BED WITH EYES OPEN AND STATES TO ME "DO NOT BRING ME ANY MEDICATION BECAUSE I WILL NOT TAKE IT". BED IS IN LOWEST POSTION WITH RAILS UP X2, CALL LIGHT IN REACH. WILL CONTINUE TO MONITOR AND FOLLOW PLAN OF CARE.
[2018-06-13 09:27] VITALS: BP 164/71
--- NOTE | 2018-06-13 09:48 | NUR ---
RADU FROM HOUSEKEEPING MANAGER HERE TO DO A HEART ECHO, PT IS REFUSING TO LET HER DO THE TEST. PT STATED TO ME, " JUST LEAVE ME ALONE". SHE HAS REFUSED EVERY MEDICATION THIS MORNING SO FAR WELL. DENIES NEEDS AT THIS TIME, CALL LIGHT IN REACH. WILL CONTINUE TO MONITOR.
--- NOTE | 2018-06-13 09:53 | NUR ---
I SPOKE WITH ALEXANDRA LUNA ABOUT PT REFUSING EVERYTHING, SHE SAID SHE WILL COME TALK WITH THE PT.
--- NOTE | 2018-06-13 09:54 | NUR ---
RESP UL ON . IV PATENT. CALL LIGHT IN REACH. WILL MONITOR NEEDS.
[2018-06-13 11:42] VITALS: BP 144/79
--- NOTE | 2018-06-13 12:51 | NUR ---
PER DR YORK CANCEL CT BIOPSY, ORDER NOTED. IR NOTIFIED.
--- NOTE | 2018-06-13 12:52 | NUR ---
PT REFUSING TO TAKE ORAL MEDICATIONS AT THIS TIME. I EXPLAINED THAT THESE ARE MEDICATIONS THAT SHE NEEDS BUT SHE STILL REFUSES. CALL LIGHT IN REACH, WILL CONTINUE TO MONITOR.
[2018-06-13 15:57] VITALS: BP 166/88
--- NOTE | 2018-06-13 17:43 | NUR ---
DAUGHTER (ADELIA AND SON IN LAW OWEN) ARE HERE FROM OUT OF STATE, PHONE NUMBER FOR ADELIA IS [phone] AND OWEN IS [phone].
--- NOTE | 2018-06-13 18:05 | NUR ---
PT REFUSES BATH OR BED CHANGE, SHE STATES "I USE WASH CLOTHS TO URINATE ON THEN REMOVE THEM MYSELF". I HAVE ASKED SEVERAL TIMES TODAY. I WAS ABLE TO OBTAIN CONSENTS FOR TOMORROW'S PROCEDURE. FAMILY IS AT BEDSIDE, CALL LIGHT IN REACH.
--- NOTE | 2018-06-13 19:00 | NUR ---
ALERT/AWAKE TALKING TO FAMILY MEMBERS. DENIES ANY NEEDS. INITIAL ASSESSMENTS DONE PER NSG FLOWCHART. ORIENTED TO CALL LIGHT.
[2018-06-13 20:00] VITALS: BP 188/85
--- NOTE | 2018-06-13 23:00 | NUR ---
REFUSED RESP TX. ACCEPTED TO TAKE HER SCHED PO MEDS EXCEPT XANAX AND MUCINEX.
[2018-06-14] VITALS (25 sets, daily range): BP systolic 11–193; BP diastolic 39–573
[2018-06-14 05:41] LABS: BASOPHILS 0.4 % (0-2); HEMOGLOBIN 13.7 g/dL (12-16); IMMATURE GRANULOCYTES 0.1 % (0-5); LYMPHOCYTES 8.3 % (15-50); MCH 30.6 pg (26.0-34.0); MCHC 31.9 g/dL (31.0-37.0); MEAN PLATELET VOLUME 11.9 fL (7.4-10.4); MONOCYTES 5.8 % (2-11); NEUTROPHILS 83.4 % (40-80); PLATELET COUNT 209 10x3/uL (130-400); RBC 4.48 10x6/uL (4.00-5.40); RDW 13.9 % (11.5-14.5); WBC 7.4 10x3/uL (4.8-10.8)
--- NOTE | 2018-06-14 06:00 | NUR ---
ALLOWED SMALL PRODUCTS ASSEMBLER TO GIVE BED BATH WITH HIBICLENS.
[2018-06-14 06:13] LABS: INR 1.49 (0.85-1.17); PROTIME 17.4 SECONDS (11.6-15.0)
[2018-06-14 06:14] LABS: APTT 70.5 SECONDS (22.8-39.4)
[2018-06-14 06:23] LABS: ANION GAP 12.1 mmol/L (8-16); CALCIUM 9.4 mg/dL (8.5-10.1); CARBON DIOXIDE 28.6 mmol/L (21.0-32.0); CREATININE - SERUM 0.8 mg/dL (0.6-1.3); POTASSIUM - SERUM 3.7 mmol/L (3.5-5.1)
--- NOTE | 2018-06-14 08:55 | NUR ---
PRE-OP MEDS GIVEN AT THIS TIME. PT A/O X4, RESP A LITTLE SHALLOW ON 3L. LT UPPER ARM PICC SL BIOPATCH IN PLACE. RT FA IV SL. PT DENIES ANY NEEDS AT THIS TIME. CALL LIGHT IN REACH, NAD NOTED, WILL CONTINUE PLAN OF CARE.
--- NOTE | 2018-06-14 10:55 | NUR ---
PT TRANSFERED TO OR VIA BED, NAD NOTED.
[2018-06-14 12:13] LABS: ALPHA FETOPROTEIN -(TUMOR MRK) 2.4 ng/mL (0.0-8.3); CA125 106.7 U/mL (0.0-38.1); CEA 4.6 ng/mL (0.0-4.7)
--- NOTE | 2018-06-14 14:16 | NUR ---
PATIENT RECIEVED FROM OR VIA BED, ART LINE ZEROED AND WITH GOOD WAVEFORM. HR - 118, PLACED ON VENT BY RT, RATE OF 14, TV - 600, SPO2 - 60%, PEEP OF 5. BBS - EQUAL WITH EXPIRATORY AND INSPIRATORY WHEEZES NOTED. CM - ST. CVP 16, ART LINE BP - 158/60. ART LINE IN PLACE AT LEFT RADIAL WITH DRESSING C/D/I. LEFT PICC TO UPPER ARM. 22 GA TO RIGHT FOREARM, PATENT, DRESSING C/D/I. CVL TO RIGHT JUGULAR PATENT WITH POSITIVE BLOOD RETURN AND EASILY FLUSHED. SPO2 - 98%. MIDLINE MEDIASTINAL DRAIN TO 20 CM H2O SUCTION WITH BLOODY OUTPUT. DRESSING C/D/I. HEAD TO TOE ASSESSMENT COMPLETED.
[2018-06-14 15:50] LABS: PROTEIN - BODY FLUID 4.9 G/DL
--- NOTE | 2018-06-14 16:39 | NUR ---
[facility] CATH PLACED AND BLOOD DRAWN AND SENT TO LAB. URINE SAMPLE SENT TO LAB.
[2018-06-14 17:00] LABS: HEMATOCRIT 37.4 % (36.0-48.0); MCH 30.7 pg (26.0-34.0); MCHC 32.1 g/dL (31.0-37.0); MCV 95.7 fL (80.0-100.0); MEAN PLATELET VOLUME 11.9 fL (7.4-10.4); RBC 3.91 10x6/uL (4.00-5.40); RDW 13.8 % (11.5-14.5)
[2018-06-14 17:07] LABS: WBC 9.6 10x3/uL (4.8-10.8)
--- NOTE | 2018-06-14 17:08 | NUR ---
PATIENTS DAUGHTERT AND SON IN LAW IN ROOM UPDATED AND QUESTIONS ANSWERED.
[2018-06-14 17:14] LABS: CALC OSMOLALITY 284 mosm/kg (275-300); CALCIUM 8.7 mg/dL (8.5-10.1); CARBON DIOXIDE 24.7 mmol/L (21.0-32.0); CHLORIDE - SERUM 105 mmol/L (98-107); CREATININE - SERUM 0.7 mg/dL (0.6-1.3); GLUCOSE 92 mg/dL (74-106); POTASSIUM - SERUM 3.4 mmol/L (3.5-5.1); SODIUM 143 mmol/L (136-145); UREA NITROGEN 13 mg/dL (7-18); eGFR NON AFRICAN AMERICAN 86 mL/min (90-120)
[2018-06-14 17:15] LABS: INR 1.47 (0.85-1.17); PROTIME 17.2 SECONDS (11.6-15.0)
[2018-06-14 17:49] LABS: APTT 39.6 SECONDS (22.8-39.4)
[2018-06-14 17:52] LABS: APPEARANCE CLEAR (CLEAR); BILIRUBIN NEGATIVE (NEGATIVE); COLOR YELLOW (YELLOW); GLUCOSE NEGATIVE (NEGATIVE); KETONE NEGATIVE (NEGATIVE); NITRITE NEGATIVE (NEGATIVE); PROTEIN TRACE mg/dL (NEGATIVE); SPECIFIC GRAVITY 1.025 (1.005-1.020); UROBILINOGEN NORMAL (NORMAL)
--- NOTE | 2018-06-14 19:00 | NUR ---
DR. HENRIQUEZ AT ROOM UPDATED AND EXAMINES PATIENT. STATES PATIENT IS NOT ABLE TO BE WEANED DUE TO HR ELEVATED, A-FIB AND SPO2% OF 89% CURRENTLY. STATES NOT STABLE ENOUGH TO WEAN TONIGHT AND NOT OPTIMISTIC ABOUT BEING ABLE TO WEAN PATIENT FROM VENT TOMORROW. CALLED DR. YORK AND ADVISED PATIENT WAS IN AFIB WITH HR IN THE 130S TO 140S, WITH SPO2-88%. ADVISED DR. HENRIQUEZ WAS NOT GOING TO WEAN PATIENT TONIGHT AND WAS GOING TO PLACE HER ON DIPROVAN GTT OVERNIGHT. DR. YORK STATED THAT HE WANTED THE PATIENT EXTUBATED TONIGHT AND NOT TO REMAIN ON THE VENT. ATTEMPTED TO EXPLAIN PATIENT CONDITION AND DR. HUA CONCERN AND LINE WAS DISCONNECTED.
--- NOTE | 2018-06-14 19:27 | NUR ---
DR. HENRIQUEZ AT BEDSIDE DISCUSSING PT STATUS. NEW ORDERS RECEIVED. SEE MAR FOR DETAILS.
--- NOTE | 2018-06-14 19:42 | NUR ---
BEDSIDE SHIFT REPORT GIVEN BY DEPARTING RN USING SBAR. PT LAYING IN BED SEDATED ON VENT. CARDIAC CHANGED NOTED. A-FIB WITH RVR 120'S-150. LEFT PICC LINE NOTED. RT IJ NOTED. SEE FLOWSHEET FOR VENT SETTINGS AND IV DRIPS. F/C DRAINING TO GRAVITY WITH SCANT AMOUNT OF DARK, CLARICE URINE IN DRAINAGE CONTAINER. AAOX4. PERRLA. FOLLOWS COMMANDS. SEE SKIN ASSESSMENT FOR FULL DETAILS ON INCISIONS AND CHEST TUBES. SAFETY MEASURES IN PLACE. CBIR.
--- NOTE | 2018-06-14 19:47 | NUR ---
DR. YORK PHONED REGARDING HEART RATE AND RHYTHM. ORDERS ARE FOLLOWS: TURN OFF SEDATION, 150 MG AMIODARONE BOLUS IV PER PROTOCOL, STAT ABG, CONSULT CARDIOLOGY, AND INITIATE CONTINUOUS AMIODARONE DRIP PER PROTOCOL. SEE MAR FOR FULL DETAILS. ORDERS RECEIVED, VERIFIED, AND READ BACK. WILL CALL MD BACK WITH ABG RESULTS.
--- NOTE | 2018-06-14 20:10 | NUR ---
PHONED DR. YORK WITH ABG RESULTS. ORDERS ARE FOLLOWS: GIVE ONE AMP BICARB IVP, 40 MEQ KCL RIDER OVER 2 HOURS, GIVE 2.5 MG LOPRESSOR IVP ONE TIME DOSE, VENT CHANGES, AND REPEAT ABG, CALL BACK WITH RESULTS. ODERS RECEIVED, VERIFIED, AND READ BACK.
--- NOTE | 2018-06-14 21:20 | NUR ---
ABG RESULTS PHONED IN TO DR. YORK. UPDATE ON PT GIVEN. ORDERS FOLLOWS: RESTART DIPRIVAN SEDATION, VENT SETTING CHANGES, 2.5 MG LOPRESSOR IVP ONE TIME DOSE, 5 MG LOPRESSOR Q6H IVP, AND INITIATE PLASMALYTE IV FLUID AT 50 ML/HR. ORDERS RECEIVED, VERIFIED, AND READ BACK.
--- NOTE | 2018-06-14 21:49 | NUR ---
FAMILY AT BEDSIDE. UPDATE GIVEN. ALL QUESTIONS ANSWERED.
--- NOTE | 2018-06-14 21:58 | NUR ---
DR. MOREJON NOTIFIED OF EARIER ONSET OF UCAF, CORDARONE GTT INITIATED AND LOPRESSOR IV PER DR. YORK, HR NOW 101, NEW ORDER REC'D.
--- NOTE | 2018-06-14 23:37 | NUR ---
REASSESSMENT COMPLETE. NO NEW CHANGES IN PT CONDITION. SEE FLOWSHEET FOR DETAILS.
[2018-06-15] VITALS (48 sets, daily range): BP systolic 117–173; BP diastolic 47–81
--- NOTE | 2018-06-15 01:58 | NUR ---
REPOSITIONED PT FOR COMFORT. TOLERATED WELL. ORAL CARE PROVIDED AND DENIED Y PT. SHAKING HEAD VIOLENTLY TO KEEP NURSE FROM PERFORMING ORAL CARE. EDUCATION PROVIDED ON HEALTH RISKS. PT CONTINUES TO DENY ORAL CARE. WILL TRY AGAIN AT A LATER TIME.
--- NOTE | 2018-06-15 03:03 | NUR ---
REASSESSMENT COMPLETE. NO CHANGES NOTED. REPOSITIONED FOR COMFORT.
[2018-06-15 05:16] LABS: BASOPHILS 0.2 % (0-2); EOSINOPHILS 0.1 % (0-7); HEMATOCRIT 35.6 % (36.0-48.0); HEMOGLOBIN 11.8 g/dL (12-16); IMMATURE GRANULOCYTES 0.1 % (0-5); LYMPHOCYTES 6.6 % (15-50); MCH 31.4 pg (26.0-34.0); MCHC 33.1 g/dL (31.0-37.0); MCV 94.7 fL (80.0-100.0); MEAN PLATELET VOLUME 11.8 fL (7.4-10.4); MONOCYTES 5.6 % (2-11); NEUTROPHILS 87.4 % (40-80); PLATELET COUNT 170 10x3/uL (130-400); RBC 3.76 10x6/uL (4.00-5.40); RDW 13.8 % (11.5-14.5)
[2018-06-15 05:24] LABS: INR 1.58 (0.85-1.17); PROTIME 18.2 SECONDS (11.6-15.0)
[2018-06-15 05:34] LABS: ANION GAP 17.1 mmol/L (8-16); CALCIUM 8.5 mg/dL (8.5-10.1); CARBON DIOXIDE 24.8 mmol/L (21.0-32.0); MAGNESIUM - SERUM 1.7 mg/dL (1.8-2.4); POTASSIUM - SERUM 3.9 mmol/L (3.5-5.1)
--- NOTE | 2018-06-15 08:25 | NUR ---
DR YORK BY TO SEE PT. ASKED FOR DIPRIVAN TO BE TURNED OFF AND PT WORKED TO BE EXTUBATED. SHE IS AWAKE AND FOLLOWING COMMANDS. 2.5MG LOPRESSOR GIVEN ORDERED. BLOOD DRAWN FOR APTT. AWAITING RESULTS.
--- NOTE | 2018-06-15 08:40 | NUR ---
PRN APRESSOLINE GIVEN FOR SBP OVER 160.
--- NOTE | 2018-06-15 09:00 | NUR ---
SCD'S PLACED ON PATIENT
--- NOTE | 2018-06-15 09:51 | NUR ---
DAUGHTER AT BEDSIDE. UPDATE PROVIDED FOR PLAN TO GET PT EXTUBATED. RT AT BEDSIDE FOR ABG.
--- NOTE | 2018-06-15 10:22 | NUR ---
On vent Pt is NPO since yesterday RD following
--- NOTE | 2018-06-15 10:23 | TEE ---
PATIENT:THADDEUS MAGDALENO MEDICAL RECORD: [id number] LOCATION:[place] [address] AGE OF PATIENT: 77 ADMISSION DATE: 06/07/18 SEX: F REFERRING PHYSICIAN: INTERPRETING PHYSICIAN: JAMES NAIR MD TRANSESOPHAGEAL ECHOCARDIOGRAM Date: 06/14/18 THU CHARGE Y INDICATIONS: PERICARDIAL WINDOW PREMEDICATIONS: PATIENT'S RESPONSE PROCEDURE DOPPLER MEASUREMENTS: LVIT LA PA 139 RA LVOT 140 RVOT 95 Asc. Ao 172 AV Gradient Peak 7.89 AV Mean 4.16 AV Area 3.1 MV Gradient Peak 12.41 MV Mean 4.22 MV Area INTERPRETATION: Doppler: 2-D: COLOR FLOW DOPPLER NORMAL SALINE STUDY: MISCELLANOUS: DIAGNOSIS: PLAN: Keymodule Assembly Machine Tender:1 Dr. Nair Blast Setter: Andrew SHEA COMMENTS: DATE OF SERVICE: PROCEDURE: Transesophageal echo during pericardial window surgery. FINDINGS: 1. Left ventricular chamber size is within normal limits. Left ventricular systolic function is normal. Overall ejection fraction estimated at 60%. 2. Left atrium, right atrium, and right ventricle chamber sizes are within normal limits. TRANSESOPHAGEAL ECHOCARDIOGRAM REPORT [id number] LEODANHAYLEYASTRID 3. Valvular structures have normal structure and motion. 4. Pericardial effusion is present. This is very large and there is right atrial and right ventricular collapse. 5. Post-pericardial window, the pericardial effusion has resolved. There is no further evidence of tamponade. TRANSINT:[id number] Voice Confirmation ID: [id number] DOCUMENT ID: [id number] at 1023 CC: [id number] DICTATION DATE: 06/14/18 1525 EQUIPMENT OPERATOR/LABORER/SUPERVISOR: 06/15/18 0011 ADM IN [place] [id number] [place] [address]
--- NOTE | 2018-06-15 10:23 | EC ---
PATIENT:THADDEUS MAGDALENO DATE OF SERVICE: 06/07/18 SEX: F MEDICAL RECORD: [id number] DATE OF : 40 LOCATION:[place] [address] AGE OF PATIENT: 77 ADMISSION DATE: 06/07/18 REFERRING PHYSICIAN: INTERPRETING PHYSICIAN: JAMES NAIR MD ECHOCARDIOGRAM REPORT ECHO CHARGES 5 ECHO LIMITED Date: 06/13/18 CLINICAL DIAGNOSIS: PERICARDIAL EFFUSION ECHOCARDIOGRAPHIC MEASUREMENTS (adult normal given) AC root (d.<3.7cm) 3.9 cm LV Septum d (<1.2 cm> 2.2 cm Valve Excursion 1.6 cm LV Septum (systole) 1.6 cm Left Atria (s.<4.0cm> 3.3 cm LVPW d(<1.2cm) 2.0 cm RV (d.<2.3cm) 3.1 cm LVPW (sytole) 1.6 cm LV diastole(<5.6CM) 2.5 cm MV E-F(>70mm/sec) cm LV systole 1.6 cm LVOT Diameter 1.7 cm MV exc.(>10mm) 1.2 cm Est.ejection fraction (50-75%) % DOPPLER: LVIT cm/sec A 170 cm/sec E 84.0 cm/sec LA cm/sec RVSP 45 mmHg LVOT 140 cm/sec AOP1/2T m/s Asc. Ao 172 cm/sec RVOT 95 cm/sec RA cm/sec PA 139 cm/sec AV Gradient Peak 7.89 mmHg AV Mean 4.16 mmHg AV Area 3.1 cm MV Gradient Peak 12.41mmHg MV Mean 4.22 mmHg MV Area cm COMMENTS: Sheet Rock Nailer: Sin SHAFER Ad Writer: 1 Dr. Nair TAPE# PACS Pericardial Effusion Y DATE OF SERVICE: 06/13/2018 PROCEDURE: Limited echocardiogram. FINDINGS: 1. Left ventricular chamber size is within normal limits. Left ventricular systolic function is normal. Overall ejection fraction is estimated at 55% to 60%. 2. Pericardial effusion is present. It appears larger than the last echocardiogram done and there does appear to be the beginnings of right atrial ECHOCARDIOGRAM REPORT [id number] THADDEUS MAGDALENO and right ventricular collapse, impending tamponade from the pericardial effusion at this time. TRANSINT:[id number] Voice Confirmation ID: [id number] DOCUMENT ID: [id number] JAMES NAIR MD at 1023 CC: [id number] DICTATION DATE: 06/13/18 1158 TOWBOAT CAPTAIN: 06/13/18 1339 ADM IN [facility] [address] [place] [id number]
--- NOTE | 2018-06-15 14:45 | NUR ---
GRECO CATHETER FLUSHED WITH 30ML SALINE. NO RESISTANCE, SAME AMOUNT OF RETURN.
--- NOTE | 2018-06-15 15:58 | NUR ---
LEFT RADIAL ART LINE REMOVED. SMALL AMOUNT OF BLEEDING NOTED. DRESSING APPLIED.
--- NOTE | 2018-06-15 17:07 | NUR ---
CHEST TUBE DRESSING CHANGED DUE TO SATURATION OF SEROUS COLORED FLUID. FULL BATH AND LINEN CHANGE. PT ALSO SET TO SIDE OF BED AND DANGLED FOR 5 MINUTES. TOLERATED WELL.
--- NOTE | 2018-06-15 18:04 | MORECARE ---
CASE MANAGEMENT DISCHARGE SUMMARY PATIENT: THADDEUS MAGDALENO UNIT: [id number] ADM DATE: 06/07/18 AGE: 77 : 40 SEX: F ROOM/BED: [facility] AUTHOR: ANGELICA BARRETO PHYSICIAN: REFERRING PHYSICIAN: RENZO CÁRDENAS MD DATE OF SERVICE: 06/15/18 Discharge Plan Patient Name: THADDEUS MAGDALENO Facility: [facility]:[place] : 1940 Planned Disposition: Anticipated Discharge Date: Discharge Date: Expected LOS: Initial Reviewer: [email or web address] Initial Review Date: 06/15/2018 Generated: 06/15/18 7:04 pm Patient Name: THADDEUS MAGDALENO Page 11584 at 1804 All edits/amendments must be made on the electronic document DICTATION DATE: 06/15/181802 QUALITY LAB TECHNICIAN: CHAD 06/15/181802 RPT#: [id number] DC DATE: STATUS: ADM IN [facility] [address] [place] [address] END OF REPORT
--- NOTE | 2018-06-15 18:14 | MORECARE ---
CASE MANAGEMENT DISCHARGE SUMMARY PATIENT: THADDEUS MAGDALENO UNIT: [id number] ADM DATE: 06/07/18 AGE: 77 : 40 SEX: F ROOM/BED: [facility] AUTHOR: ANGELICA BARRETO PHYSICIAN: REFERRING PHYSICIAN: RENZO CÁRDENAS MD DATE OF SERVICE: 06/15/18 Discharge Plan Patient Name: THADDEUS MAGDALENO Facility: [facility]:[place] : 1940 Planned Disposition: Anticipated Discharge Date: Discharge Date: Expected LOS: Initial Reviewer: [email or web address] Initial Review Date: 06/15/2018 Generated: 06/15/18 7:14 pm DCPIA - Discharge Planning Initial Assessment Updated by [email or web address]: Sugey Navas on 06/15/18 6:07 pm * Is the patient Alert and Oriented? Yes * PCP no pcp * Pharmacy [facility] * Preadmission Environment Homeless * Other Environment PATIENT WAS LIVING IN [facility] BUT IT HAS BEEN SOLD AND SHE CAN'T RETURN THERE * ADLs Independent * Equipment None * List name and contact numbers for known caregivers / representatives who currently or will assist patient after discharge: MIGUEL -DAUGHTER- [phone] OWEN - SON IN LAW - [phone] * Verbal permission to speak to the caregivers and representatives has been obtained from the patient. Yes * Community resources currently utilized None * Additional services required to return to the preadmission environment? No * Can the patient safely return to the preadmission environment? No * Has this patient been hospitalized within the prior 30 days at any hospital? No Last DP export: 06/15/18 5:04 p Patient Name: THADDEUS MAGDALENO Page [id number] at 1814 All edits/amendments must be made on the electronic document DICTATION DATE: 06/15/181813 EMERGENCY DEPARTMENT NURSE: CHAD 06/15/181813 RPT#: [id number] DC DATE: STATUS: ADM IN [facility] [address] [place] [address] END OF REPORT
--- NOTE | 2018-06-15 18:23 | MORECARE ---
CASE MANAGEMENT DISCHARGE SUMMARY PATIENT: THADDEUS MAGDALENO UNIT: [id number] ADM DATE: 06/07/18 AGE: 77 : 40 SEX: F ROOM/BED: D.[facility] AUTHOR: ESTEVAN,DOC PHYSICIAN: REFERRING PHYSICIAN: RENZO CÁRDENAS MD DATE OF SERVICE: 06/15/18 Discharge Plan Patient Name: THADDEUS MAGDALENO Facility: [facility]:[place] : 1940 Planned Disposition: Anticipated Discharge Date: Discharge Date: Expected LOS: Initial Reviewer: [email or web address] Initial Review Date: 06/15/2018 Generated: 06/15/18 7:22 pm Comments DCP- Discharge Planning Updated by [email or web address]: Sugey Navas on 06/15/18 5:[address] Patient Name: THADDEUS MAGDALENO Admission Status: ER Accout number: [id number] Admission Date: 06-07-2018 : 1940 Admission Diagnosis:PNEUMONIA, UNSPECIFIED ORGANISM Attending: RENZO CÁRDENAS Current LOS: 8 Anticipated DC Date: Planned Disposition: Primary Insurance: MEDICARE A & B Discharge Planning Comments: CM met with patient and daughter at bedside. Patient states she doesn't know what or where she is going upon discharge. She states that prior to admission patient lived in a hotel with a friend and they worked there for payment of room and board. Hotel has been sold and she currently has no place to stay. Patient is refusing NH placement. Patient is requesting assistance with finding a long term apartment. Patient is refusing to move with daughter to [place]. The closest family member lives in [place] and will be here tomorrow. CM will try to check on availability of long term and low cost housing near by. CM will continue to follow and assist as needed with discharge planning / needs. Range Mounter: Sugey Navas DCPIA - Discharge Planning Initial Assessment Updated by [email or web address]: Sugey Navas on 06/15/18 6:07 pm * Is the patient Alert and Oriented? Yes * PCP no pcp * Pharmacy [facility] * Preadmission Environment Homeless * Other Environment PATIENT [place]IVING [place] BUT IT HAS [place]EN SOLD AND SHE CAN'T RETURN THERE * ADLs Independent * Equipment None * List name and contact numbers for known caregivers / representatives who currently or will assist patient after discharge: MIGUEL -DAUGHTER- [phone] OWEN - SON IN LAW - [phone] * Verbal permission to speak to the caregivers and representatives has been obtained from the patient. Yes * Community resources currently utilized None * Additional services required to return to the preadmission environment? No * Can the patient safely return to the preadmission environment? No * Has this patient been hospitalized within the prior 30 days at any hospital? No Last DP export: 06/15/18 5:14 p Patient Name: THADDEUS MAGDALENO Page [id number] at 1823 All edits/amendments must be made on the electronic document DICTATION DATE: 06/15/181821 BLOCKER AND POLISHER GOLD WHEEL: CHAD 06/15/181821 RPT#: [id number] DC DATE: STATUS: ADM IN [facility] [address] [place] [address] END OF REPORT
--- NOTE | 2018-06-15 19:00 | NUR ---
AOX4. SHALLOW RESPIRATIONS. LUNG SOUNDS CRACKLES THROUGHOUT. WEAK COUGH, REFUSES TO COMPLETE I/S EXERCISES AT THIS TIME. S1S2 HEARD, PERIPHERAL PULSES PRESENT. BOWEL SOUNDS ACTIVE IN ALL QUADRANTS. GRECO CATH INTACT. LEFT CT INTACT WITH SEROUS DRAINAGE PRESENT. VSS, NO C/O PAIN AT THIS TIME. PT REPOSITIONED WITH PROMINENCES BRIDGED. CALL LIGHT WITHIN PT REACH. CPOC.
--- NOTE | 2018-06-15 20:00 | NUR ---
FAMILY AT BEDSIDE, UPDATE PROVIDED AND QUESTIONS ANSWERED.
[2018-06-15 20:07] LABS: ACID FAST SMEAR Negative (()); AFB SPECIMEN PROCESSING Concentration (())
--- NOTE | 2018-06-15 20:30 | NUR ---
FRESH WATER TO BEDSIDE, HS MEDS GIVEN. PT REPOSITIONED WITH PROMINENCES BRIDGED. VSS, NO C/O PAIN AT THIS TIME. DENIES NEEDS. CALL LIGHT WITHIN PT REACH. CPOC.
--- NOTE | 2018-06-15 21:51 | NUR ---
APTT 73.5, NO CHANGE IN HEPARIN GTT AT THIS TIME PER ORDER, WILL RECHECK IN AM.
--- NOTE | 2018-06-15 23:00 | NUR ---
REASSESSMENT COMPLETE, NO NEW CHANGES AT THIS TIME. PT RESTING QUIETLY, AROUSES EASILY. REFUSES TO COMPLETE I/S EXERCISES. WILL COUGH/DB WITH POOR EFFORT. PT REPOSITIONED WITH PROMINENCES BRIDGED. VSS, CPOC.
[2018-06-16] VITALS (21 sets, daily range): BP systolic 128–162; BP diastolic 48–107
--- NOTE | 2018-06-16 03:00 | NUR ---
REASSESSMENT COMPLETE, NO NEW CHANGES AT THIS TIME. PT STILL REFUSING TO DO I/S EXERCISES. WEAK COUGH. REPOSITIONED WITH PROMINENCES BRIDGED. VSS, NO C/O PAIN AT THIST [place]ALI. CALL LIGHT AND BEDSIDE TABLE WITHIN PT REACH. CPOC.
--- NOTE | 2018-06-16 05:00 | NUR ---
PT REPOSITIONED WITH PROMINENCES BRIDGED. REFUSES TO COUGH/DB, REFUSES TO COMPLETE I/S EXERCISES. VSS, NO C/O PAIN. CALL LIGHT WITHIN PT REACH. CPOC.
[2018-06-16 05:58] LABS: BASOPHILS 0.6 % (0-2); EOSINOPHILS 0.5 % (0-7); HEMATOCRIT 39.2 % (36.0-48.0); HEMOGLOBIN 12.4 g/dL (12-16); IMMATURE GRANULOCYTES 0.2 % (0-5); LYMPHOCYTES 6.1 % (15-50); MCH 30.2 pg (26.0-34.0); MCHC 31.6 g/dL (31.0-37.0); MCV 95.6 fL (80.0-100.0); MEAN PLATELET VOLUME 12.1 fL (7.4-10.4); MONOCYTES 6.5 % (2-11); NEUTROPHILS 86.1 % (40-80); PLATELET COUNT 184 10x3/uL (130-400); RDW 14.3 % (11.5-14.5); WBC 9.8 10x3/uL (4.8-10.8)
[2018-06-16 06:34] LABS: ANION GAP 14.8 mmol/L (8-16); CALCIUM 8.5 mg/dL (8.5-10.1); CARBON DIOXIDE 28.1 mmol/L (21.0-32.0); MAGNESIUM - SERUM 2.1 mg/dL (1.8-2.4); POTASSIUM - SERUM 3.9 mmol/L (3.5-5.1)
[2018-06-16 06:35] LABS: CREATININE - SERUM 1.3 mg/dL (0.6-1.3)
--- NOTE | 2018-06-16 07:59 | NUR ---
VANCOMYCIN TROUGH WAS 18.5, DRAWN ABOUT AN HOUR EARLY. WILL CONTINUE ORDERED. 3 DAYS REMAIN ON CURRENT COURSE
[2018-06-16 10:21] LABS: FUNGUS STAIN Final report (())
--- NOTE | 2018-06-16 10:39 | NUR ---
GRECO CATH LEAKING ON TO LINENS. BATHED AND LINENS CHANGED. FC REPOSITIONED AND FLUSHED WITH STERAL SALINE FOR PATIENCY. DR MYRICK HERE. SPOKE TO CM RE: RECOMENDATIONS PER DR MYRICK.
--- NOTE | 2018-06-16 10:39 | MORECARE ---
CASE MANAGEMENT DISCHARGE SUMMARY PATIENT: THADDEUS MAGDALENO UNIT: [id number] ADM DATE: 06/07/18 AGE: 77 : 40 SEX: F ROOM/BED: D[facility] AUTHOR: ESTEVAN,DOC PHYSICIAN: REFERRING PHYSICIAN: RENZO CÁRDENAS MD DATE OF SERVICE: 06/16/18 Discharge Plan Patient Name: THADDEUS MAGDALENO Facility: [facility]:[place] : 1940 Planned Disposition: Anticipated Discharge Date: Discharge Date: Expected LOS: Initial Reviewer: [email or web address] Initial Review Date: 06/15/2018 Generated: 06/16/18 11:39 am Comments DCP- Discharge Planning Updated by [email or web address]: Sugey Navas on 06/16/18 9:[address] CM spoke with patients daughter Miguel this am. We discussed options as far as discharge planning patient will probably need rehab and possibly termite treater helper care. Family is getting together later today to discuss where they may want things set up for. Patient closest relative lives in [place] family talking about finding placement for Rehab in [place] or locally. Miguel is going to let CM now the plan she would like for us to work toward after family discussion. CM will continue to follow and assist as needed with discharge planning / needs. DCP- Discharge Planning Updated by [email or web address]: Sugey Navas on 06/15/18 5:[address] Patient Name: THADDEUS MAGDALENO Admission Status: ER Accout number: [id number] Admission Date: 06-07-2018 : 1940 Admission Diagnosis:PNEUMONIA, UNSPECIFIED ORGANISM Attending: RENZO CÁRDENAS Current LOS: 8 Anticipated DC Date: Planned Disposition: Primary Insurance: MEDICARE A & B Discharge Planning Comments: CM met with patient and daughter at bedside. Patient states she doesn't know what or where she is going upon discharge. She states that prior to admission patient lived in a hotel with a friend and they worked there for payment of room and board. Hotel has been sold and she currently has no place to stay. Patient is refusing NH placement. Patient is requesting assistance with finding a snf apartment. Patient is refusing to move with daughter to [place]. The closest family member lives in [place] and will be here tomorrow. CM will try to check on availability of snf and low cost housing near by. CM will continue to follow and assist as needed with discharge planning / needs. Detective Automobile Section: Sugey Navas DCPIA - Discharge Planning Initial Assessment Updated by [email or web address]: Sugey Navas on 06/15/18 6:07 pm * Is the patient Alert and Oriented? Yes * PCP no pcp * Pharmacy [facility] * Preadmission Environment Homeless * Other Environment PATIENT [place] LIVING [place] BUT IT HAS BEEN SOLD AND SHE CAN'T RETURN THERE * ADLs Independent * Equipment None * List name and contact numbers for known caregivers / representatives who currently or will assist patient after discharge: MIGUEL -DAUGHTER- [phone] OWEN - SON IN LAW - [phone] * Verbal permission to speak to the caregivers and representatives has been obtained from the patient. Yes * Community resources currently utilized None * Additional services required to return to the preadmission environment? No * Can the patient safely return to the preadmission environment? No * Has this patient been hospitalized within the prior 30 days at any hospital? No Last DP export: 06/15/18 5:22 p Patient Name: THADDEUS MAGDALENO Page [id number] at 1039 All edits/amendments must be made on the electronic document DICTATION DATE: 06/16/18 1039 AIRPLANE RIGGER: CHAD 06/16/18 1039 RPT#: [id number] DC DATE: STATUS: ADM IN [facility] [address] [place] [address] END OF REPORT
--- NOTE | 2018-06-16 11:20 | NUR ---
PT ORIENTED TO PERSON, PLACE AND TIME. BP 164/74. HYDRALIZINE GIVEN ORDERED.
--- NOTE | 2018-06-16 15:50 | NUR ---
HR 120 RYTHM AFIB. CALLED SPIRAL MACHINE OPERATOR DR ALEJANDRO. AWAITING CALL BACK.
--- NOTE | 2018-06-16 17:46 | NUR ---
DR HENRIQUEZ SPOKE TO PT AND DAUGHTER AT BS. PT STATES THAT SHE DOES NOT WANT LUNG BX.
--- NOTE | 2018-06-16 19:17 | NUR ---
REPORT RECEIVED, SHIFT ASSESSMENT COMPLETED PER FLOW SHEET. AAOX4. PPP. FOLLOWING COMMANDS. LEFT SUBSTERNAL CT TO WATER SEAL, SEROUS FLUID NOTED. 3 L OXYMIZER. LUE PICC LINE SALINE LOCKED. RT JUGULAR CVL PATENT. GRECO CATHETER TO GRAVITY SECURED. DENIES PAIN OR NEEDS. SEE FLOW SHEET FOR COMPLETE ASSESSMENT. WILL CONTINUE TO MONITOR.
--- NOTE | 2018-06-16 20:18 | NUR ---
FAMILY AT BEDSIDE, UPDATE GIVEN, QUESTIONS ANSWERED. PATIENT DENIES NEEDS. CALL LIGHT WITHIN REACH. WILL CONTINUE TO MONITOR.
--- NOTE | 2018-06-16 20:44 | NUR ---
PATIENT CONVERTED TO SINUS RHYTHM WITH PAC'S. WILL CONTINUE TO MONITOR.
--- NOTE | 2018-06-16 21:41 | NUR ---
FAMILY AT BEDSIDE. SCHEDULED MEDS GIVEN, WATER WITH ICE PROVIDED, NO DYSPHAGIA. DENIES NEEDS. CALL LIGHT WITHIN REACH. WILL CONTINUE TO MONITOR.
--- NOTE | 2018-06-16 23:09 | NUR ---
REASSESSMENT COMPLETED PER FLOW SHEET, SEE FOR DETAILS. TELEMETRY MONITORING HR 92, SINUS RHYTHM WITH PAC'S. DENIES PAIN OR NEEDS. WILL CONTINUE TO MONITOR.
[2018-06-17] VITALS (24 sets, daily range): BP systolic 111–156; BP diastolic 37–72
--- NOTE | 2018-06-17 01:00 | NUR ---
RESTING, VSS, WILL CONTINUE TO MONITOR.
--- NOTE | 2018-06-17 03:01 | NUR ---
REASSESSMENT COMPLETED PER FLOW SHEET, SEE FOR DETAILS. DENIES NEEDS. WILL CONTINUE TO MONITOR.
--- NOTE | 2018-06-17 05:00 | NUR ---
COMPLETE BED BATH GIVEN WITH SOAP AND WATER. COMPLETE BED LINEN CHANGE PROVIDED. GRECO CARE PROVIDED. [facility] GOWN PROVIDED. TOLERATED ALL WELL. WATER WITH ICE PROVIDED. DENIES OTHER NEEDS. WILL CONTINUE TO MONITOR.
--- NOTE | 2018-06-17 05:00 | NUR ---
RESTING IN BED, NO ACUTE DISTRESS NOTED, DENIES NEEDS. WILL CONTINUE TO MONITOR.
--- NOTE | 2018-06-17 05:13 | NUR ---
C/O ABDOMENAL PAIN PRN PERCOCET GIVEN, SEE EMAR FOR DETAILS.
[2018-06-17 06:24] LABS: BASOPHILS 0.4 % (0-2); EOSINOPHILS 0.6 % (0-7); IMMATURE GRANULOCYTES 0.2 % (0-5); LYMPHOCYTES 5.7 % (15-50); MCH 30.6 pg (26.0-34.0); MCHC 31.7 g/dL (31.0-37.0); MCV 96.5 fL (80.0-100.0); MEAN PLATELET VOLUME 12.1 fL (7.4-10.4); MONOCYTES 5.9 % (2-11); NEUTROPHILS 87.2 % (40-80); PLATELET COUNT 212 10x3/uL (130-400); RBC 4.25 10x6/uL (4.00-5.40); RDW 14.6 % (11.5-14.5); WBC 9.7 10x3/uL (4.8-10.8)
[2018-06-17 06:51] LABS: ANION GAP 12.8 mmol/L (8-16); CALCIUM 8.7 mg/dL (8.5-10.1); CARBON DIOXIDE 29.7 mmol/L (21.0-32.0); CREATININE - SERUM 1.3 mg/dL (0.6-1.3); MAGNESIUM - SERUM 1.8 mg/dL (1.8-2.4); POTASSIUM - SERUM 3.5 mmol/L (3.5-5.1)
--- NOTE | 2018-06-17 07:00 | NUR ---
REPORT RECEVIED FROM THE OFF GOING RN. SEE ASSEESSMENT IN THE PTS FLOW SHEET. PT IN NSR. VSS AT THIS TIME. ON 3L VIA HIGH FLOW O2. O2 SAT 90%. PT TAKING SHALLOW BREATHS. ENCOURAGED THE PT TO TCDB. VERY WEAK COUGH NOTED. PT PULLS LESS THAN 250 ON HER IS. BREAKFAST TRAY PROVIDED FOR THE PT. PT REFUSED TO EAT. I ASKED IF I COULD GET HER SOMETHING THAT SHE WOULD EAT AND SHE REQUESTED OATMEAL. KITCHEN CALLED AND IT WAS OBTAINED AND SHE STILL REFUSED TO EAT. VSS AT THIS TIME. WILL CON TPOC.
--- NOTE | 2018-06-17 09:00 | NUR ---
PT RESTING WITH HER EYES CLOSED DESATING. PT TAKEN SHALLOW, GUPPY BREATHS. PT WOKEN UP AND O2 INCREASED TO 5L VIA HIGH FLOW O2. O2 SAT 89%. DAUGHTER NOTIFIED THAT THE PT IS NOT DOING WELL AND THAT THE PT WISHES TO BE A FULL CODE BUT SHE DOES NOT WANT TO BE INTUBATED. THE DAUGHTER STATED THAT SHE WILL BE HERE IN 15 MINUTES AND SHE WOULD LIKE TO SPEAK WITH DR MATA. DR MATA IN THE UNIT AND AT THE PTS BEDSIDE. PT A&O X4 AND FULLY AWARE OF HER CONDITION. WHENEVER WE TALKED ABOUT HER CODE STATUS, SHE TOLD DR MATA THAT SHE WOULD LIKE TO BE A FULL CODE BUT SHE DOES NOT WANT TO HAVE A BREATHING TUBE. DR MATA EXPLAINED TO THE PT THAT IF SHE WANTS TO BE A FULL CODE, THEN HAVING A VENTILATOR COULD BE A POSSIBLILITY AND SHE STATED NO VENTILATOR. THE PT WAS MADE A DNI AND THE PT IS FULLY AWARE AND WAS EDUCATED OF WHAT A DNI IS. THE DAUGHTER IS AT THE PTS BEDSIDE AND DR MATA EXPLAINED TO THE DAUGHTER THE CONDICTION AND PROGNOSIS SINCE THE PT IS REFUSING TREATMENT AND EATING. THE PTS DAUGHTER STATED THAT THE PT MAKES ALL HER DECISIONS. SHE IS AWARE OF THE PTS DNI STATUS.
--- NOTE | 2018-06-17 09:30 | NUR ---
REVIEWED MEDICATION WITH DR MATA. HE STATED TO GO AHEAD AND GIVE XANAX.
--- NOTE | 2018-06-17 11:44 | NUR ---
O2 DECREASED TO 6L VIA HIGH FLOW. VSS AT THIS TIME. BREATHING SHALLOW BUT UNLABORED.
--- NOTE | 2018-06-17 13:06 | NUR ---
Nutrition Follow Up: Pt was asleep at the time of RD visit. Spoke with pt's daughter who reported that pt is not eating much at all. Daughter said that pt likes Ensure and may drink it if ordered. Food preferences noted. Noted pt extubated 06/15/18. Diet: Regular PO Intake: 17% meal avg BM: 06/13/18 I>O Wt gain noted Labs reviewed Meds noted including Lasix Rec continue current diet as tolerated. Rec consider Procalamine if pt's appetite does not improve. Will order Ensure TID and will honor food preferences. RD following.
--- NOTE | 2018-06-17 16:25 | NUR ---
CT PULLED BY BLANCA ESPINOSA PER DR PHAN INSTRUCTIONS. DRESSING APPLIED AND C/D/I.
--- NOTE | 2018-06-17 19:05 | MORECARE ---
CASE MANAGEMENT DISCHARGE SUMMARY PATIENT: THADDEUS MAGDALENO UNIT: [id number] ADM DATE: 06/07/18 AGE: 77 : 40 SEX: F ROOM/BED: D.[facility] AUTHOR: ESTEVANDOC PHYSICIAN: REFERRING PHYSICIAN: RENZO CÁRDENAS MD DATE OF SERVICE: 06/17/18 Discharge Plan Patient Name: THADDEUS MAGDALENO Facility: [facility]:[place] : 1940 Planned Disposition: Anticipated Discharge Date: Discharge Date: Expected LOS: Initial Reviewer: [email or web address] Initial Review Date: 06/15/2018 Generated: 06/17/18 8:05 pm Comments DCP- Discharge Planning Updated by [id number]: Sugey Navas on 06/17/18 6:[address] CM spoke with daughter at this point it is uncertain if patient will survive for discharge. Nursing and Dr. Spence have spoke to patient and family regarding code status. Patient wants to be a DNI but does want CPR. Family from [place] never came. Daughter will be leaving Thursday for her home in [place]. CM will continue to follow and assist as needed with discharge planning / needs. DCP- Discharge Planning Updated by [id number]: Sugey Navas on 06/16/18 9:[address] CM spoke with patients daughter Miguel this am. 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 Family is getting together later today to discuss where they may want things set up for. Patient closest relative lives in [place] family talking about finding placement for Rehab in [place] or locally. Miguel is going to let CM now the plan she would like for us to work toward after family discussion. CM will continue to follow and assist as needed with discharge planning / needs. DCP- Discharge Planning Updated by [id number]: Sugey Navas on 06/15/18 5:[address] Patient Name: THADDEUS MAGDALENO Admission Status: ER Accout number: [id number] Admission Date: 06-07-2018 : 1940 Admission Diagnosis:PNEUMONIA, UNSPECIFIED ORGANISM Attending: RENZO CÁRDENAS Current LOS: 8 Anticipated DC Date: Planned Disposition: Primary Insurance: MEDICARE A & B Discharge Planning Comments: CM met with patient and daughter at bedside. Patient states she doesn't know what or where she is going upon discharge. She states that prior to admission patient lived in a hotel with a friend and they worked there for payment of room and board. Hotel has been sold and she currently has no place to stay. Patient is refusing NH placement. Patient is requesting assistance with finding a group home apartment. Patient is refusing to move with daughter to [place]. The closest family member lives in [place] and will be here tomorrow. CM will try to check on availability of group home and low cost housing near by. CM will continue to follow and assist as needed with discharge planning / needs. Magnesium Mill Operator: Sugey Navas DCPIA - Discharge Planning Initial Assessment Updated by [email or web address]: Sugey Navas on 06/15/18 6:07 pm * Is the patient Alert and Oriented? Yes * PCP no pcp * Pharmacy [facility] * Preadmission Environment Homeless * Other Environment PATIENT WAS LIVING IN HOTEL BUT IT HAS BEEN SOLD AND SHE CAN'T RETURN THERE * ADLs Independent * Equipment None * List name and contact numbers for known caregivers / representatives who currently or will assist patient after discharge: MIGUEL -DAUGHTER- [phone] OWEN - SON IN LAW - [phone] * Verbal permission to speak to the caregivers and representatives has been obtained from the patient. Yes * Community resources currently utilized None * Additional services required to return to the preadmission environment? No * Can the patient safely return to the preadmission environment? No * Has this patient been hospitalized within the prior 30 days at any hospital? No Last DP export: 06/16/18 9:39 a Patient Name: THADDEUS MAGDALENO Page [id number] at 1905 All edits/amendments must be made on the electronic document DICTATION DATE: 06/17/181903 FILM TOUCH UP INSPECTOR: CHAD 06/17/181903 RPT#: [id number] DC DATE: STATUS: ADM IN [facility] [address] [place] [address] END OF REPORT
--- NOTE | 2018-06-17 20:00 | NUR ---
1900 REPORT RECIEVED, SHIFT ASSESSMENT COMPLETE, PLEASE SEE FLOW SHEETS FOR DETAILS. PATIENT LAYING IN BED, RESTING LIGHTLY, WOKE EASILY TO VOICE. PATIENT ANSWERS QUESTIONS APPROPRIATELY, ORIENTED X4, SPEACH SLIGHTLY SLURRED. LUNGS WITH RHONCHI IN UPPER LOBES AND LOWER LOBES DIMINISHED, ON 6L HIGH FLOW NC, TOLERATING WELL. S1S2 HEARD, RRR NOTED ON CM, PPP, +2 EDEMA IN ALL EXTREMETIES, PITTING IN LE. BS HYPO X4. GRECO IN PLACE DRAINING CONCENTRATED URINE VIA GRAVITY. FOLLOWS COMMANDS. TURNING PROVIDED TO RIGHT SIDE. DRESSINGS TO SUBSTERNAL AREA CDI X2. RIGHT IJ WITH FLUIDS INFUSING, PLEASE SEE IV FLOW SHEET FOR DETAILS. DRESSING CDI. BED LOW AND LOCKED, CALL LIGHT IN REACH. HEMODYNAMICALLY STABLE ATT, WILL CPOC.
--- NOTE | 2018-06-17 21:46 | NUR ---
TOLERATING PO WELL. GOOD COUGH EFFORT NOTED. FULL TUBING CHANGE PROVIDED. REFUSED SOME OF HER MEDS, STATED SHE DID NOT NEED THEM. DRESSING CHANGE PROVIDED TO RIGHT IJ AND LEFT UPPER ARM PICC LINE, FLUSHED WITH SOME DIFFICULTY. HEMODYNAMICALLY STABLE. BED LOW AND LOCKED, CALL LIGHT IN REACH. WILL CPOC.
--- NOTE | 2018-06-17 23:12 | NUR ---
REASSESSMENT COMPLETE, PLEASE SEE FLOW SHEETS FOR DETAILS. NO ACUTE CHANGES FROM PREVIOUS ASSESSMENT TO NOTE. DENIES PAIN/NEEDS ATT. HEMODYNAMICALLY STABE, BED LOW AND LOCKED, CALL LIGHT IN REACH. WILL CPOC.
[2018-06-18] VITALS (22 sets, daily range): BP systolic 128–156; BP diastolic 50–93
--- NOTE | 2018-06-18 00:35 | NUR ---
RESTING. HEMODYNAMICALLY STABLE. BED LOW AND LOCKED, CALL LIGHT IN REACH. WILL CPOC.
--- NOTE | 2018-06-18 03:00 | NUR ---
REASSESSMENT COMPLETE, PLEASE SEE FLOW SHEETS FOR DETAILS. NO ACUTE CHANGES FROM PREVIOUS ASSESSMENT TO NOTE. DENIES PAIN/NEEDS ATT. HEMODYNAMICALLY STABLE. BED LOW AND LOCKED, CALL LIGHT IN REACH. WILL CPOC.
--- NOTE | 2018-06-18 05:00 | NUR ---
HEMODYNAMICALLY STABE ATT. JACKELINE DOTSON IN BED WATCHING TV. DENIES ANY PAIN/NEEDS ATT. GRECO CARE PROVIDED. BED LOW AND LOCKED, CALL LIGHT IN REACH. WILL CPOC.
[2018-06-18 07:51] LABS: ANION GAP 12.4 mmol/L (8-16); CALCIUM 8.5 mg/dL (8.5-10.1); CARBON DIOXIDE 31.1 mmol/L (21.0-32.0); CREATININE - SERUM 1.2 mg/dL (0.6-1.3); MAGNESIUM - SERUM 1.8 mg/dL (1.8-2.4); POTASSIUM - SERUM 3.5 mmol/L (3.5-5.1); VANCOMYCIN - TROUGH 22.5 ug/mL (10.0-20.0)
[2018-06-18 07:52] LABS: BASOPHILS 0.6 % (0-2); EOSINOPHILS 2.3 % (0-7); HEMATOCRIT 39.7 % (36.0-48.0); HEMOGLOBIN 12.6 g/dL (12-16); IMMATURE GRANULOCYTES 0.3 % (0-5); LYMPHOCYTES 6.8 % (15-50); MCH 30.7 pg (26.0-34.0); MCHC 31.7 g/dL (31.0-37.0); MCV 96.6 fL (80.0-100.0); MONOCYTES 7.8 % (2-11); NEUTROPHILS 82.2 % (40-80); PLATELET COUNT 231 10x3/uL (130-400); RBC 4.11 10x6/uL (4.00-5.40); RDW 14.4 % (11.5-14.5); WBC 7.8 10x3/uL (4.8-10.8)
--- NOTE | 2018-06-18 08:58 | NUR ---
LAB CALLED DUE TO AN ABNORMAL HIGH PTT. PT IS GETTING IV HEPARIN. UNSURE WHETHER BLOOD SAMPLE WAS COLLECTED FROM WHERE THE HEPARIN WAS INFUSING. HEPARIN INFUSING IN RIGHT IJ. PTT REDRAWN FROM LEFT PICC LINE AND SENT TO THE LAB.
--- NOTE | 2018-06-18 09:22 | NUR ---
PTT WITHIN THEARAPUTIC RANGE. HEPRAIN RESTARTED AT 9ML/H. CONT. HEPARIN PER ORDRES.
--- NOTE | 2018-06-18 09:50 | NUR ---
SPOKE WITH ALLEN CARLSON NEW ACCOUNTS CLERK [place]. UPDATED HER ON THE PT CONDITION AND MEDICATION. SHE STATED TO TURN CARDIZEM TO 5ML/H FOR 2 HOURS THEN DC.
--- NOTE | 2018-06-18 09:55 | NUR ---
DR MATA IN THE UNIT. UPDATED HIM ON THE PTS CONDITION. HE STATED TO KEEP THE PT IN ICU.
--- NOTE | 2018-06-18 19:40 | NUR ---
REPORT REC'D AND CARE ASSUMED REC'D PT RESTING EYES CLOSED, O2 @ 6 LITERS VIA HIGH FLOW NC, PT AROUSES TO VERBAL STIMULI BUT FALLS BACK TO SLEEP QUICKLY, DENIES PAIN OR NEEDS, CHEST DRSG CDI, RIJDL DRSG CDI WITH PLASMALYTE @ 10CC/HR AND HEPARIN @ 900 UNITS/HR, LEFT UPPER ARM PICC LINE DRSG CDI WITH PURPLE PORT SALINE LOCKED, RED PORT WITH PROCALAMINE @ 50CC/HR, CRITICORE GRECO PATENT DRAINING YELLOW WITH SEDIMENT, BILAT SCDS OFF FOR A BREAK , AIR OVERLAY MATTRESS IN USE, SR UP X 2, CALL LIGHT IN REACH.
--- NOTE | 2018-06-18 20:35 | NUR ---
ATTEMPTED TO WAKE PT FOR EVENING MEDS TOOK A FEW MINUTES TO GET PATIENT AWAKE, DAUGHTER INTO VISIT, UPDATE GIVEN AND QUESTIONS ANSWERED, PT ADJUSTED TO SIT UP IN BED, PO MEDS GIVEN ONE AT A TIME AND LARGE PILLS BROKEN IN HALF FOR PT COMFORT.
--- NOTE | 2018-06-18 21:15 | NUR ---
PO MEDS TAKEN, PT REPOSITIONED UP IN BED FOR COMFORT, DENIES OTHER NEEDS.
--- NOTE | 2018-06-18 23:00 | NUR ---
REASSESSMENT COMPLETED, PT DENIES NEEDS OR PAIN, SR UP X 2, CALL LIGHT IN REACH.
[2018-06-19] VITALS (26 sets, daily range): BP systolic 127–168; BP diastolic 46–75
--- NOTE | 2018-06-19 01:30 | NUR ---
PT COMPLAINS OF LIPS BEING DRY, LIP/MOUTH MOISTURIZER APPLIED, PT REPOSITIONED UP IN BED AND ONTO RIGHT SIDE SUPPORTED WITH PILLOWS, DENIES FURTHER NEEDS, CALL LIGHT IN REACH.
--- NOTE | 2018-06-19 03:00 | NUR ---
REASSESSMENT COMPLETED, NO CHANGES FROM PREVIOUS ASSESSMENT, VSS, WILL CONT TO MONITOR.
--- NOTE | 2018-06-19 05:30 | NUR ---
AM LAB DRAWN AND SENT TO LAB.
[2018-06-19 05:55] LABS: BASOPHILS 0.3 % (0-2); EOSINOPHILS 1.8 % (0-7); HEMATOCRIT 42.3 % (36.0-48.0); HEMOGLOBIN 13.4 g/dL (12-16); IMMATURE GRANULOCYTES 0.1 % (0-5); LYMPHOCYTES 8.1 % (15-50); MCH 30.7 pg (26.0-34.0); MCHC 31.7 g/dL (31.0-37.0); MEAN PLATELET VOLUME 11.3 fL (7.4-10.4); MONOCYTES 7.3 % (2-11); NEUTROPHILS 82.4 % (40-80); PLATELET COUNT 224 10x3/uL (130-400); RBC 4.36 10x6/uL (4.00-5.40); RDW 14.4 % (11.5-14.5); WBC 6.7 10x3/uL (4.8-10.8)
--- NOTE | 2018-06-19 06:10 | NUR ---
PARTIAL BATH AND LINEN CHANGE GIVEN, PERIAREA EXCORIATED AND RED, CLEANED AND NYSTATIN POWDER APPLIED, COMFORT GLIDE PAD PLACED UNDER PT, PT REPOSITIONED UP IN BED, TOLERATED WELL.
[2018-06-19 06:18] LABS: ANION GAP 10.4 mmol/L (8-16); CALCIUM 8.6 mg/dL (8.5-10.1); CARBON DIOXIDE 33.1 mmol/L (21.0-32.0); MAGNESIUM - SERUM 1.7 mg/dL (1.8-2.4); POTASSIUM - SERUM 3.5 mmol/L (3.5-5.1)
--- NOTE | 2018-06-19 07:30 | NUR ---
AWAKES EASILY TO VERBAL STIMULI SKIN WARM AND DRY. RIJ INFUSING WITH PLAMALYTE AT 10 ML HOUR AND HEAPRIN GTT AT 900 UNITS HOUR. GRECO CATH PATENT AND DRAINING CLEAR YELLOW URINE. MONITOR SR. STATES SHE IS HURTING. DIFFICULTY TO UNDERSTAND SPEECH. SCD ON LOWER LEGS.
--- NOTE | 2018-06-19 08:00 | NUR ---
REFUSED BREAKFAST ONLY WANTS HOT TEA, THEN REFUSED HOT TEA. FRESH ICE WATER PROVIDED. OFFERED MILK SHAKE ASKE WHAT SHE WANTED NOTHING VERBALIZED
--- NOTE | 2018-06-19 09:00 | NUR ---
DAUGHTER HERE. UPDATE GIVEN. PATEINT RESTING WELL ON PAIN PILL. NO DISTRESS. PROCALMAINE INFUSING LEFT UPPER ARM PICC.
--- NOTE | 2018-06-19 10:30 | NUR ---
DR. MATA HERE NEW ORDERS NOTED
--- NOTE | 2018-06-19 12:00 | NUR ---
refused lunch takes sips of water. opens eyes to verbal stimuli, does not answer questions. sleeping most of the time. no distress.
--- NOTE | 2018-06-19 14:00 | NUR ---
repositioned. sips of water taken with straw. no distress. asked if in any pain no answer. opens eyes occ. to verbal stimuli. daughter here. prince cath patent. chest and substernal dressing dry and intact. monitor sr. right ij infusing with heparin 900 units hour and plamalyte at 10 ml hour. left upper arm picc infusing with procalamine at 50 ml hour. hypoactive bowel sounds present. all extremities swollen. scd on lower legs. very diminshed lung sounds only hear air in upper lobes. congestion noted.
--- NOTE | 2018-06-19 15:31 | NUR ---
repositioned. no change no distress. still taking sips of water when offered.
--- NOTE | 2018-06-19 17:18 | NUR ---
DAUGHTER STATES PATIENT IS HURTING. PAIN PILL GIVEN CRUSHED AND PUT IN APPLE SAUCE. TAKES SMALL BITES WITH SIPS OF WATER. SHALLOW BREATHING. REPOSTIONED HEPARIN CONTINUES AT 900 UNITS HOUR. PROCALAMINE AT 50 ML HOUR. GRECO [facility] PATENT.
[2018-06-19 21:40] LABS: BASOPHILS 0.1 % (0-2); EOSINOPHILS 0.1 % (0-7); HEMATOCRIT 44.8 % (36.0-48.0); HEMOGLOBIN 13.9 g/dL (12-16); IMMATURE GRANULOCYTES 0.5 % (0-5); LYMPHOCYTES 5.7 % (15-50); MCH 30.8 pg (26.0-34.0); MEAN PLATELET VOLUME 11.2 fL (7.4-10.4); MONOCYTES 5.3 % (2-11); NEUTROPHILS 88.3 % (40-80); RBC 4.52 10x6/uL (4.00-5.40); RDW 14.5 % (11.5-14.5); WBC 7.4 10x3/uL (4.8-10.8)
[2018-06-19 21:47] LABS: INR 1.32 (0.85-1.17); PROTIME 15.8 SECONDS (11.6-15.0)
[2018-06-19 21:49] LABS: D-DIMER-QUANTITATIVE 1.73 ug/mLFEU (0.20-0.54)
[2018-06-19 21:51] LABS: MCV 99.1 fL (80.0-100.0); PLATELET COUNT 271 10x3/uL (130-400)
[2018-06-19 21:51] LABS: APTT 136.7 SECONDS (22.8-39.4)
[2018-06-19 21:53] LABS: ALBUMIN 2.2 g/dL (3.4-5.0); ANION GAP 7.5 mmol/L (8-16); BILIRUBIN - TOTAL 0.61 mg/dL (0.2-1.3); CALCIUM 8.7 mg/dL (8.5-10.1); CARBON DIOXIDE 35.1 mmol/L (21.0-32.0); CREATININE - SERUM 1.1 mg/dL (0.6-1.3); PROTEIN - SERUM 6.6 g/dL (6.4-8.2)
[2018-06-19 21:56] LABS: MAGNESIUM - SERUM 2.3 mg/dL (1.8-2.4); POTASSIUM - SERUM 4.6 mmol/L (3.5-5.1)
--- NOTE | 2018-06-19 22:36 | NUR ---
1899 REPORT RECIEVED. 1919 CHECKED IN ON PATIENT, RESTING, HEMODYNCAMICALLY STABLE. 2029 CRUSHED MEDS AND PUT IN APPLE SAUCE, PATIENT LETHARGIC BUT WAKES TO VOICE. WILL NOT SWALLOW UNCRUSHABLE MEDS. 80% APPLE SAUCE MEDS CONSUMED, GOOD SWALLOWING OBSERVED. TOOK A FEW SIPS OF WATER. SHIFT ASSESSMENT COMPLETED AFTER THIS. PUPILS EQUAL AND REACTIVE, PATIENT WILL NOT ANSWER ANY QUESTIONS WITHOUT A YES/NO ANSWER. RR SHALLOW, VERY DIMINISHED IN ALL LOBES, UPPER LOBES WITH SOME RHONCHI/CRACKLES HEARD. 5L HFNC ON, SPO2 93%. S1S2 HEARD AND RRR NOTED ON CM, PPP, +4 PITTING EDEMA IN LOWER EXTREMETIES 2+ EDEMA UN UPPER EXTREMETIES. BS HYPO X4. CRITICORE GRECO IN PLACE, NOW 2129 AND TEMP 34.3 C, OR 93.7 F. GOT BEAR HUGGER OUT AND PUT ON IMMEDIATELY. INFORMED CHARGE NURSE OF PATIENT STATUS. MARIEL STAT CBC, CMP, PTT, NOTIFIED RESP. THERAPY OF NEED FOR STAT ABG. 2156 RECIEVED RESULTS FOR PTT - 136, PAUSED HEPARIN. [address] MATA, CALLED BACK IMMEDIATELY. NOTIFIED OF PATIENT STATUS, ORDERS TO HOLD HEPARIN FOR 2 HOURS AND RESTART AT 200 UNITS BELOW PREVIOUS RATE AND TO PUT ON BIPAP. [address] EISENBERG, INFORMED OF PATIENT STATUS, ORDER FOR BIPAP RECIEVED, TO HYPERVENTILATE PATIENT. RESP. THERAPY INFORMED. FAMILY STILL IN ROOM THROUGHOUT, GAVE UPDATES THROUGHOUT. VERYFIED CODE STATUS AND INFORMED OF MD ORDERS. FAMILY OKAY WITH THIS. VERIFIED CALL IN CODE AND PROVIDED UNIT PHONE NUMBER. NOTIFIED FAMILY WILL CALL FOR ANY SIGNIFICANT CHANGES AND THEY LEFT UNIT. 2244 CONTINUING TO MONITOR STATUS. HEMODYNAMICALLY STABLE, BEAR HUGGER STILL ON, TEMP INCREASING. BED LOW AND LOCKED, CALL LIGHT IN REACH. WILL CPOC.
--- NOTE | 2018-06-19 23:01 | NUR ---
REASSESSMENT COMPLETE, PLEASE SEE FLOW SHEETS FOR DETAILS. HEMODYNAMICALLY STABLE. STILL VERY LETHARGIC, WILL WAKE TO VOICE. TEMP INCREASING. CONTINUING TO MONITOR. WILL CPOC.
[2018-06-20] VITALS (23 sets, daily range): BP systolic 92–186; BP diastolic 27–79
--- NOTE | 2018-06-20 00:15 | NUR ---
VERY LOW URINE OUTPUT CONTINUES, FLUSHED GRECO CATH USING STERILE TECHNIQUE WITH 10ML STERILE SALINE FLUSH, IMMEDIATELY RETURNED THIS TO GRECO AND MORE OUT, WILL CONTINUE TO MONITOR THIS. PATIENT AWAKENING BETTER NOW. WANTS MASK OFF, INFORMED OF NEED FOR IT AND WHY IT WAS PUT ON. PATIENT WAS INFORMED BY CHARGE NURSE THAT SHE NEEDED TO KEEP IT AND WHY. PATIENT DID NOT RESPOND, CLOSED EYES AND WAS NO LONGER TRYING TO PULL OF MASK OR BEAR HUGGER BLANKET.
--- NOTE | 2018-06-20 00:40 | NUR ---
TEMP 96.4, WILL CONTINUE WITH COLIN MCKEON. 158 URINE OUT FOR THIS HOUR SO FAR NOT COUNTING FLUSH. WILL ALSO CONTINUE TO MONITOR THIS.
--- NOTE | 2018-06-20 01:45 | NUR ---
TEMP 97.3 F, TURNED BEAR HUGGER OFF. MONITORING URINE OUTPUT, CONTINUES AT INCREASED AMOUNT. SEE FLOW SHEETS FOR FULL OUTPUT RECORD. WILL CPOC.
--- NOTE | 2018-06-20 03:00 | NUR ---
REASSESSMENT COMPLETE, PLEASE SEE FLOW SHEETS FOR DETAILS. PATIENT WAKES, VERBALIZES NEEDS. DOES NOT LIKE BIPAP, HAS BEEN TOLD MULTIPLE TIMES THAT IT IS NEEDED. DOES TOLERATE AFTER BEING TOLD USE. GIEN SIPS OF WATER AND MADK BACK ON. HEMODYNAMICALLY STABLE ATT. BED LOW AND LOCKED, CALL LIGHT IN REACH. WILL CPOC.
--- NOTE | 2018-06-20 06:22 | NUR ---
0500 REQUESTING WATER, THIS WAS PROVIDED. 0545 REQUESTING WATER, THIS WAS PROVIDED. C/O SORE BRIDGE OF NOSE, INFORMED RESP. THERAPY OF NEED OF PADDING. HEMODYNAMICALLY STABLE. BED LOW AND LOCKED, CALL LIGHT IN REACH. WILL CPOC.
[2018-06-20 06:26] LABS: BASOPHILS 0.1 % (0-2); EOSINOPHILS 0.8 % (0-7); HEMOGLOBIN 13.4 g/dL (12-16); IMMATURE GRANULOCYTES 0.3 % (0-5); LYMPHOCYTES 8.5 % (15-50); MCH 30.5 pg (26.0-34.0); MCHC 31.2 g/dL (31.0-37.0); MCV 97.7 fL (80.0-100.0); MEAN PLATELET VOLUME 11.9 fL (7.4-10.4); MONOCYTES 7.1 % (2-11); NEUTROPHILS 83.2 % (40-80); PLATELET COUNT 246 10x3/uL (130-400); RDW 14.3 % (11.5-14.5); WBC 7.3 10x3/uL (4.8-10.8)
[2018-06-20 06:52] LABS: ALBUMIN 2.1 g/dL (3.4-5.0); ANION GAP 9.4 mmol/L (8-16); BILIRUBIN - TOTAL 0.61 mg/dL (0.2-1.3); CALCIUM 8.7 mg/dL (8.5-10.1); CARBON DIOXIDE 33.9 mmol/L (21.0-32.0); CREATININE - SERUM 1.1 mg/dL (0.6-1.3); POTASSIUM - SERUM 4.3 mmol/L (3.5-5.1); PROTEIN - SERUM 6.2 g/dL (6.4-8.2)
--- NOTE | 2018-06-20 07:30 | NUR ---
ON BI PAP AT THIS TIME. REMOVED PLACED ON 4 LITERS OXYGEN TO TAKE MEDS AND OFFER FOOD. PATIENT DID DRINK 100CC OF ENSURE AND FEW SIPS OF WATER. MEDS CRUSHED AND GIVEN IN APPLE SAUCE. PATIENT PULSE DECREASING INTO 80'S BIPAP REPLACED AT 60% OXYGEN TO MAINTAIN PULSE OX ABOVE 90%.
--- NOTE | 2018-06-20 08:30 | NUR ---
COMPLETE BED BATH WITH LINEN CHANGE PATIENT HAS LARGE AMOUNT OF WHITE DISCHARGE IN GROIN AREA. AREA EXCORATED. CLEAN WITH SOAP AND WATER. MOISTURE BARRIER APPLIED THEN NYSTAIN POWDER APPLIED. COMPLETE LINEN CHANGE. REPOSIITONED ON SIDE. PATIENT TOLERATED FAIR. GRECO CATH PATENT. RIGHT SUBCLAVIAN CATHETER INFUSING WITH PLASMALYTE AT KVO FOR IVPB, HEPARIN GTT AT 700 UNITS HOUR. LEFT UPPER ARM PICC INFUSING WITH PROCALAMINE AT 50 ML HOUR. GOOD COUGH EFFORT WHEN OFF BIPAP. REST WELL ON BIPAP. HEAD OF BED ELEVATED 30 DEGREES.
--- NOTE | 2018-06-20 09:30 | NUR ---
DAUGHTER SHANTAL HERE. UPDATE GIVEN. PATIENT RESTING COMFORTABLY ON SIDE. MONITOR SR
--- NOTE | 2018-06-20 10:30 | NUR ---
REPOSITIONED. TOLERATED FAIR.
--- NOTE | 2018-06-20 11:30 | NUR ---
TEMP DROPPING, COLIN MCKEON APPLIED. DR. CÁRDENAS HERE TALKED WITH DAUGHTER ABOUT HOSPICE CARE AND PATIENT REFUSING TREATMENT.
--- NOTE | 2018-06-20 12:00 | NUR ---
HOSPICE HERE TALKED WITH DAUGHTER AND PATIENT. PATIENT CONTINUES TO REFUSE HOSPICE CARE STATES SHE WANTS TO LIVE. DAUGHTER [place] TOWN. DAUGHTER STATES PATIENT HAS 2 OTHER CHILDREN, BUT THIS DAUGHTER IS NOT IN CONTACT WITH THEM. DAUGHTER SHANTAL HAS CALLED PATIENT'S SISTER AND NOTIFIED HER OF SITUATION. OTHER FAMILY MEMEBER ARE SUPPOSE TO BE ON THERE WAY. HOSPICE STATES TO CALL IF PATIENT OR FAMILY WANT HOSPICE SERVICES.
--- NOTE | 2018-06-20 12:47 | NUR ---
DR. CÁRDENAS NOTIFIED OF PATIENT AND DAUGHTER REFUSAL OF HOSPICE CARE. NO NEW ORDERS
--- NOTE | 2018-06-20 14:30 | NUR ---
DR. CÁRDENAS CALLED REGARDING BLOOD PRESSURE ORDERS RECEIVED.
--- NOTE | 2018-06-20 14:50 | MORECARE ---
CASE MANAGEMENT DISCHARGE SUMMARY PATIENT: THADDEUS MAGDALENO UNIT: [id number] ADM DATE: 06/07/18 AGE: 77 : 40 SEX: F ROOM/BED: D.[facility] AUTHOR: ESTEVANDOC PHYSICIAN: REFERRING PHYSICIAN: RENZO CÁRDENAS MD DATE OF SERVICE: 06/20/18 Discharge Plan Patient Name: THADDEUS MAGDALENO Facility: [facility]:[place] : 1940 Planned Disposition: Anticipated Discharge Date: Discharge Date: Expected LOS: Initial Reviewer: [email or web address] Initial Review Date: 06/15/2018 Generated: 06/20/18 3:50 pm Comments DCP- Discharge Planning Updated by [id number]: Radha Scott on 06/20/18 1:[address] Patient Name: THADDEUS MAGDALENO Admission Status: ER Accout number: [id number] Admission Date: 06-07-2018 : 1940 Admission Diagnosis:PNEUMONIA, UNSPECIFIED ORGANISM Attending: RENZO CÁRDENAS Current LOS: 13 Anticipated DC Date: Planned Disposition: Primary Insurance: MEDICARE A & B Discharge Planning Comments: CM SPOKE WITH NURSE, VI, ABOUT PATIENT. NURSE STATES [facility] CAME TO SEE THE PATIENT TODAY BUT THEN THE FAMILY REFUSED HOSPICE AND THE PATIENT IS REFUSING HOSPICE. CM TO FOLLOW AND ASSIST NEEDED WITH DC PLANNING/NEEDS. Dural Mechanic: Radha Scott DCP- Discharge Planning Updated by [id number]: Sugey Navas on 06/17/18 6:[address] CM spoke with daughter at this point it is uncertain if patient will survive for discharge. Nursing and Dr. Spence have spoke to patient and family regarding code status. Patient wants to be a DNI but does want CPR. Family from [place] never came. Daughter will be leaving Thursday for her home in [place]. CM will continue to follow and assist as needed with discharge planning / needs. DCP- Discharge Planning Updated by [id number]: Sugey Navas on 06/16/18 9:[address] CM spoke with patients daughter Miguel this am. We discussed options as far as discharge planning patient will probably need rehab and possibly alf care. Family is getting together later today to discuss where they may want things set up for. Patient closest relative lives in [place] family talking about finding placement for Rehab in [place] or locally. Miguel is going to let CM now the plan she would like for us to work toward after family discussion. CM will continue to follow and assist as needed with discharge planning / needs. DCP- Discharge Planning Updated by [id number]: Sguey Navas on 06/15/18 5:[address] Patient Name: THADDEUS MAGDALENO Admission Status: ER Accout number: [id number] Admission Date: 06-07-2018 : 1940 Admission Diagnosis:PNEUMONIA, UNSPECIFIED ORGANISM Attending: RENZO CÁRDENAS Current LOS: 8 Anticipated DC Date: Planned Disposition: Primary Insurance: MEDICARE A & B Discharge Planning Comments: CM met with patient and daughter at bedside. Patient states she doesn't know what or where she is going upon discharge. She states that prior to admission patient lived in a hotel with a friend and they worked there for payment of room and board. Hotel has been sold and she currently has no place to stay. Patient is refusing NH placement. Patient is requesting assistance with finding a residential apartment. Patient is refusing to move with daughter to [place]. The closest family member lives in [place] and will be here tomorrow. CM will try to check on availability of residential and low cost housing near by. CM will continue to follow and assist as needed with discharge planning / needs. Dural Mechanic: Sugey Navas DCPIA - Discharge Planning Initial Assessment Updated by [email or web address]: Sugey Navas on 06/15/18 6:07 pm * Is the patient Alert and Oriented? Yes * PCP no pcp * Pharmacy [facility] * Preadmission Environment Homeless * Other Environment PATIENT WAS LIVING IN HOTEL BUT IT HAS BEEN SOLD AND SHE CAN'T RETURN THERE * ADLs Independent * Equipment None * List name and contact numbers for known caregivers / representatives who currently or will assist patient after discharge: MIGUEL -DAUGHTER- [phone] OWEN - SON IN LAW - [phone] * Verbal permission to speak to the caregivers and representatives has been obtained from the patient. Yes * Community resources currently utilized None * Additional services required to return to the preadmission environment? No * Can the patient safely return to the preadmission environment? No * Has this patient been hospitalized within the prior 30 days at any hospital? No Last DP export: 06/17/18 6:05 p Patient Name: THADDEUS MAGDALENO Page [id number] at 1450 All edits/amendments must be made on the electronic document DICTATION DATE: 06/20/181448 COMMUNICATIONS DIRECTOR: CHAD 06/20/181448 RPT#: [id number] DC DATE: STATUS: ADM IN [facility] [address] [place] [address] END OF REPORT
--- NOTE | 2018-06-20 16:30 | NUR ---
REFUSED DINNER TRAY. MEDS CRUSHED AND PUT IN APPLE SAUCE. THEN SIPS OF WATER GIVEN
--- NOTE | 2018-06-20 17:00 | NUR ---
DR. HENRIQUEZ HERE. PATIENT RESTING COMFORTABLY.
--- NOTE | 2018-06-20 17:28 | MORECARE ---
CASE MANAGEMENT DISCHARGE SUMMARY PATIENT: THADDEUS MAGDALENO UNIT: [id number] ADM DATE: 06/07/18 AGE: 77 : 40 SEX: F [facility] AUTHOR: ANGELICA BARRETO PHYSICIAN: REFERRING PHYSICIAN: RENZO CÁRDENAS MD DATE OF SERVICE: 06/20/18 Discharge Plan Patient Name: THADDEUS MAGDALENO Facility: [facility]:[place] : 1940 Planned Disposition: Anticipated Discharge Date: Discharge Date: Expected LOS: Initial Reviewer: [email or web address] Initial Review Date: 06/15/2018 Generated: 06/20/18 6:28 pm Comments DCP- Discharge Planning Updated by [id number]: Amairaninoam Funes on 06/20/18 4:[address] LATE ENTRY 1050 CM RECEIVED A TC FROM PRIMARY NURSE, GREGORY, REGARDING HOSPICE CONSULT. THE PATIENT'S DAUGHTER WAS LEAVING TO CATCH A FLIGHT IN ONE HOUR. CM INSTRUCTED THE NURSE TO OBTAIN CONTACT NAME AND PHONE NUMBER FOR THE FAMILY THE FACE SHEET ONLY HAS THE PATIENT'S CONTACT PHONE NUMBER. 1100 TC TO [facility], THE CONTRACTED [facility] PROVIDER FOR [facility]. 1113 REC CB FROM ANNIA, THE WHEEL ASSEMBLER NURSE. EXPLAINED THE REFERRAL. PROVIDED DX FOR HOSPICE REFERRAL. TRANSFERED HER DIRECTLY TO THE CVICU UNIT TO SPEAK TO THE FAMILY DUE TO TIME CONSTRAINT. FOLLOW UP TC BACK TO PRIMARY NURSE. SHE REPORTED A [facility] CONTACT WAS ABLE TO SPEAK WITH THE FAMILY. THE DAUGHTER WAS RELUCTANT TO MAKE A SOLITARY DECISION. SHE WANTS OTHER FAMILY MEMBERS TO BE INVOLVED. REPORTEDLY OTHER FAMILY MEMBERS WILL BE ARRIVING. DCP- Discharge Planning Updated by [id number]: Radha Sonia on 06/20/18 1:[address] Patient Name: THADDEUS MAGDALENO Admission Status: ER Accout number: [id number] Admission Date: 06-07-2018 : 1940 Admission Diagnosis:PNEUMONIA, UNSPECIFIED ORGANISM Attending: RENZO CÁRDENAS Current LOS: 13 Anticipated DC Date: Planned Disposition: Primary Insurance: MEDICARE A & B Discharge Planning Comments: CM SPOKE WITH NURSE, VI, ABOUT PATIENT. NURSE STATES [facility] CAME TO SEE THE PATIENT TODAY BUT THEN THE FAMILY REFUSED HOSPICE AND THE PATIENT IS REFUSING HOSPICE. CM TO FOLLOW AND ASSIST NEEDED WITH DC PLANNING/NEEDS. Beaming Machine Operator: Radha Scott DCP- Discharge Planning Updated by [id number]: Sugey Navas on 06/17/18 6:[address] CM spoke with daughter at this point it is uncertain if patient will survive for discharge. Nursing and Dr. Spence have spoke to patient and family regarding code status. Patient wants to be a DNI but does want CPR. Family from [place] never came. Daughter will be leaving Thursday for her home in [place]. CM will continue to follow and assist as needed with discharge planning / needs. DCP- Discharge Planning Updated by [email or web address]: Sugey Navas on 06/16/18 9:[address] CM spoke with patients daughter Miguel this am. We discussed options as far as discharge planning patient will probably need rehab and possibly intermediate care. Family is getting together later today to discuss where they may want things set up for. Patient closest relative lives in [place] family talking about finding placement for Rehab in [place] or locally. Miguel is going to let CM now the plan she would like for us to work toward after family discussion. CM will continue to follow and assist as needed with discharge planning / needs. DCP- Discharge Planning Updated by [email or web address]: Sugey Navas on 06/15/18 5:[address] Patient Name: THADDEUS MAGDALENO Admission Status: ER Accout number: [id number] Admission Date: 06-07-2018 : 1940 Admission Diagnosis:PNEUMONIA, UNSPECIFIED ORGANISM Attending: RENZO CÁRDENAS Current LOS: 8 Anticipated DC Date: Planned Disposition: Primary Insurance: MEDICARE A & B Discharge Planning Comments: CM met with patient and daughter at bedside. Patient states she doesn't know what or where she is going upon discharge. She states that prior to admission patient lived in a hotel with a friend and they worked there for payment of room and board. Hotel has been sold and she currently has no place to stay. Patient is refusing NH placement. Patient is requesting assistance with finding a group home apartment. Patient is refusing to move with daughter to [place]. The closest family member lives in [place] and will be here tomorrow. CM will try to check on availability of group home and low cost housing near by. CM will continue to follow and assist as needed with discharge planning / needs. Beaming Machine Operator: Sugey Navas DCPIA - Discharge Planning Initial Assessment Updated by [id number]: Sugey Navas on 06/15/18 6:07 pm * Is the patient Alert and Oriented? Yes * PCP no pcp * Pharmacy [facility] * Preadmission Environment Homeless * Other Environment PATIENT WAS LIVING IN [place] BUT IT HAS BEEN SOLD AND SHE CAN'T RETURN THERE * ADLs Independent * Equipment None * List name and contact numbers for known caregivers / representatives who currently or will assist patient after discharge: MIGUEL -DAUGHTER- [phone] OWEN - SON IN LAW - [phone] * Verbal permission to speak to the caregivers and representatives has been obtained from the patient. Yes * Community resources currently utilized None * Additional services required to return to the preadmission environment? No * Can the patient safely return to the preadmission environment? No * Has this patient been hospitalized within the prior 30 days at any hospital? No Last DP export: 06/20/18 1:50 p Patient Name: THADDEUS MAGDALENO Page 93430 at 1728 All edits/amendments must be made on the electronic document DICTATION DATE: 06/20/181727 TAXI DANCER: CHAD 06/20/181727 RPT#: [id number] DC DATE: STATUS: ADM IN [facility] [address] [place] [address] END OF REPORT
--- NOTE | 2018-06-20 18:15 | MORECARE ---
CASE MANAGEMENT DISCHARGE SUMMARY PATIENT: THADDEUS MAGDALENO UNIT: [id number] ADM DATE: 06/07/18 AGE: 77 : 40 SEX: F [facility] AUTHOR: ESTEVAN,DOC PHYSICIAN: REFERRING PHYSICIAN: RENZO CÁRDENAS MD DATE OF SERVICE: 06/20/18 Discharge Plan Patient Name: THADDEUS MAGDALENO Facility: [facility]:[place] : 1940 Planned Disposition: Anticipated Discharge Date: Discharge Date: Expected LOS: Initial Reviewer: [id number] Initial Review Date: 06/15/2018 Generated: 06/20/18 7:15 pm Comments DCP- Discharge Planning Updated by [email or web address]: Amairani Funes on 06/20/18 5:[address] CONTACT PHONE NUMBERS MIGUEL MAGDALENO- DTR- [phone] OWEN- SON IN LAW- [phone] DCP- Discharge Planning Updated by [id number]: Amairani Funes on 06/20/18 4:[address] LATE ENTRY 1050 CM RECEIVED A TC FROM PRIMARY NURSE, GREGORY, REGARDING HOSPICE CONSULT. THE PATIENT'S DAUGHTER WAS LEAVING TO CATCH A FLIGHT IN ONE HOUR. CM INSTRUCTED THE NURSE TO OBTAIN CONTACT NAME AND PHONE NUMBER FOR THE FAMILY THE FACE SHEET ONLY HAS THE PATIENT'S CONTACT PHONE NUMBER. 1100 TC TO [facility], THE CONTRACTED [facility]ICE PROVIDER FOR [facility]. 1113 REC CB FROM ANNIA, THE MECHANICAL DRAWING TEACHER NURSE. EXPLAINED THE REFERRAL. PROVIDED DX FOR HOSPICE REFERRAL. TRANSFERED HER DIRECTLY TO THE CVICU UNIT TO SPEAK TO THE FAMILY DUE TO TIME CONSTRAINT. FOLLOW UP TC BACK TO PRIMARY NURSE. SHE REPORTED A SILVIA CONTACT WAS ABLE TO SPEAK WITH THE FAMILY. THE DAUGHTER WAS RELUCTANT TO MAKE A SOLITARY DECISION. SHE WANTS OTHER FAMILY MEMBERS TO BE INVOLVED. REPORTEDLY OTHER FAMILY MEMBERS WILL BE ARRIVING. DCP- Discharge Planning Updated by [email or web address]: Radha Scott on 06/20/18 1:[address] Patient Name: THADDEUS MAGDALENO Admission Status: ER Accout number: [id number] Admission Date: 06-07-2018 : 05-22-1941 Admission Diagnosis:PNEUMONIA, UNSPECIFIED ORGANISM Attending: RENZO CÁRDENAS Current LOS: 13 Anticipated DC Date: Planned Disposition: Primary Insurance: MEDICARE A & B Discharge Planning Comments: CM SPOKE WITH NURSE, VI, ABOUT PATIENT. NURSE STATES [facility] CAME TO [facility] THE PATIENT TODAY BUT THEN THE FAMILY REFUSED HOSPICE AND THE PATIENT IS REFUSING HOSPICE. CM TO FOLLOW AND ASSIST NEEDED WITH DC PLANNING/NEEDS. Antique Clock Repairer: Radha Scott DCP- Discharge Planning Updated by [email or web address]: Sugey Navas on 06/17/18 6:[address] CM spoke with daughter at this point it is uncertain if patient will survive for discharge. Nursing and Dr. Spence have spoke to patient and family regarding code status. Patient wants to be a DNI but does want CPR. Family from [place] never came. Daughter will be leaving Thursday for her home in [place]. CM will continue to follow and assist as needed with discharge planning / needs. DCP- Discharge Planning Updated by [id number]: Sugey Navas on 06/16/18 9:[address] CM spoke with patients daughter Miguel this am. We discussed options as far as discharge planning patient will probably need rehab and possibly emt intermediate care. Family is getting together later today to discuss where they may want things set up for. Patient closest relative lives in [place] family talking about finding placement for Rehab in [place] or locally. Miguel is going to let CM now the plan she would like for us to work toward after family discussion. CM will continue to follow and assist as needed with discharge planning / needs. DCP- Discharge Planning Updated by [email or web address]: Sugey Navas on 06/15/18 5:[address] Patient Name: THADDEUS MAGDALENO Admission Status: ER Accout number: [id number] Admission Date: 06-07-2018 : 1940 Admission Diagnosis:PNEUMONIA, UNSPECIFIED ORGANISM Attending: RENZO CÁRDENAS Current LOS: 8 Anticipated DC Date: Planned Disposition: Primary Insurance: MEDICARE A & B Discharge Planning Comments: CM met with patient and daughter at bedside. Patient states she doesn't know what or where she is going upon discharge. She states that prior to admission patient lived in a hotel with a friend and they worked there for payment of room and board. Hotel has been sold and she currently has no place to stay. Patient is refusing NH placement. Patient is requesting assistance with finding a [facility] apartment. Patient is refusing to move with daughter to [place]. The closest family member lives in [place] and will be here tomorrow. CM will try to check on availability of [facility] and low cost housing near by. CM will continue to follow and assist as needed with discharge planning / needs. Antique Clock Repairer: Sugey Navas DCPIA - Discharge Planning Initial Assessment Updated by [email or web address]: Sugey Navas on 06/15/18 6:07 pm * Is the patient Alert and Oriented? Yes * PCP no pcp * Pharmacy [facility] * Preadmission Environment Homeless * Other Environment PATIENT WAS LIVING IN [place] BUT IT HAS BEEN SOLD AND SHE CAN'T RETURN THERE * ADLs Independent * Equipment None * List name and contact numbers for known caregivers / representatives who currently or will assist patient after discharge: MIGUEL -DAUGHTER- [phone] OWEN - SON IN LAW - [phone] * Verbal permission to speak to the caregivers and representatives has been obtained from the patient. Yes * Community resources currently utilized None * Additional services required to return to the preadmission environment? No * Can the patient safely return to the preadmission environment? No * Has this patient been hospitalized within the prior 30 days at any hospital? No Last DP export: 06/20/18 4:28 p Patient Name: THADDEUS MAGDALENO Page 33937 at 1815 All edits/amendments must be made on the electronic document DICTATION DATE: 06/20/181814 OB/GYN DOCTOR: CHAD 06/20/181814 RPT#: [id number] DC DATE: STATUS: ADM IN [facility] [address] [place] [address] END OF REPORT
--- NOTE | 2018-06-20 22:29 | NUR ---
DR. KAHN NOTIFIED OF PATIENTS DECLINE, REFUSAL TO TAKE PO MEDS, AND DECREASE IN BLOOD PRESSURE. NO NEW ORDERS RECEIVED AND PHYSICIAN AWARE. CM SR AT 71 AT THIS TIME. CALL LIGHT WITHIN REACH WILL CONTINUE TO MONITOR PATIENT.
[2018-06-21] VITALS (27 sets, daily range): BP systolic 95–176; BP diastolic 28–81
--- NOTE | 2018-06-21 09:43 | NUR ---
PT REFUSING ORAL MEDICATIONS. SHOOK HER HEAD TO INDICATE THAT SHE WOULDN'T TAKE THE MEDICATIONS AND VERBALLY RESPONDED "NO" WHEN ASKED IF WOULD TAKE HER MORNING PILLS. SON-IN-LAW CALLED TO CHECK UP ON PATIENT. PASSWORD PROVIDED. DISCUSSED PT NOT TAKING MEDICATION OR EATING.
--- NOTE | 2018-06-21 10:55 | NUR ---
DAUGHTER CALLED FOR UPDATE. LET HER KNOW PT REFUSING ANYTHING BY MOUTH. DR CÁRDENAS AT BEDSIDE. PT RESPONDS WHEN QUESTIONED ABOUT TAKING MEDICATIONS BY SHAKING HER HEAD TO INDICATE "NO".
--- NOTE | 2018-06-21 13:23 | NUR ---
PT HAS PULLED BIPAP MASK OFF. REFUSING TO WEAR. PLACED ON HF NC AT 15L.
--- NOTE | 2018-06-21 14:03 | NUR ---
Regular diet ordered Noted pt is refusing meals Reviewed po intake and pt has not had adequate nutrition in several days Procalamine was started Noted hospice was refused REC: May want to consider PEG tube placement RD following
--- NOTE | 2018-06-21 14:22 | NUR ---
PT RR 30, LABORED. REFUSES BIPAP. SAYS NO WHEN ASKED IF I CAN PUT IT BACK ON.
--- NOTE | 2018-06-21 15:23 | NUR ---
have called and left daughter priscilla message to call unit. no response as of yet. called dr craig and notified of pt refusal and labored breathing. no new orders received.
--- NOTE | 2018-06-21 17:15 | NUR ---
spoke with daughter priscilla. updated to pt deteriorating condition. pt no longer following commands. labored breathing. she is working on obtaining transportation back to [place].
--- NOTE | 2018-06-21 21:44 | NUR ---
PATIENT IS UNRESPONSIVE AT THIS TIME AND UNABLE TO TAKE PO MEDS. BLOOD PRESSURE DECREASING TO 88/25 (51), SPO2 92%, AND RR 30. WILL CONTINUE TO MONITOR.
[2018-06-22] VITALS (13 sets, daily range): BP systolic 51–128; BP diastolic 23–67
[2018-06-22 06:10] LABS: BASOPHILS 0 % (0-2); EOSINOPHILS 0 % (0-7); HEMATOCRIT 44.9 % (36.0-48.0); HEMOGLOBIN 13.2 g/dL (12-16); IMMATURE GRANULOCYTES 0.5 % (0-5); LYMPHOCYTES 5.4 % (15-50); MCH 30.4 pg (26.0-34.0); MCHC 29.4 g/dL (31.0-37.0); MCV 103.5 fL (80.0-100.0); MEAN PLATELET VOLUME 11.4 fL (7.4-10.4); MONOCYTES 4.9 % (2-11); NEUTROPHILS 89.2 % (40-80); PLATELET COUNT 271 10x3/uL (130-400); RBC 4.34 10x6/uL (4.00-5.40); RDW 14.6 % (11.5-14.5); WBC 10.8 10x3/uL (4.8-10.8)
[2018-06-22 06:38] LABS: ANION GAP 10.6 mmol/L (8-16); BILIRUBIN - TOTAL 0.46 mg/dL (0.2-1.3); CALCIUM 8.9 mg/dL (8.5-10.1); CREATININE - SERUM 1.9 mg/dL (0.6-1.3); MAGNESIUM - SERUM 2.3 mg/dL (1.8-2.4); PHOSPHOROUS 5.7 mg/dL (2.5-4.9); POTASSIUM - SERUM 5.6 mmol/L (3.5-5.1); PROTEIN - SERUM 6.1 g/dL (6.4-8.2)
--- NOTE | 2018-06-22 08:01 | NUR ---
CODE BLUE. PT IS DNI. ERP AT BS. ACLS INDICATED IN PROGRESS. DAUGHTER CALLED, NO ANSWER. LEFT CALL BACK NO. ON BOTH CONTACT NUMBERS.
--- NOTE | 2018-06-22 08:10 | NUR ---
CORONERS OFFICE NOTIFIED. SPOKE WITH
--- NOTE | 2018-06-22 08:14 | NUR ---
DAUGHTER CALLED BACK AND I REPORTED TO HER THAT PT HAS . ASSISTED WITH A FEW HOME CONTACTS AND SHE REPORTED THAT SHE AND HER WILL MAKE DECISION AND RETURN CALL WITH DECISION.
--- NOTE | 2018-06-22 08:19 | NUR ---
JESUS CALLED. SPOKE WITH VIKI. WILL PAGE OUT TO HEAD COACH.
--- NOTE | 2018-06-22 08:49 | NUR ---
SPOKE WITH ROB FROM JESUS. ANSWERED QUESTIONS. WILL PRESENT TO HER COORDINATOR AND CALL US BACK.
--- NOTE | 2018-06-22 08:49 | NUR ---
PT DAUGHTER CALLED STATED SHE WANTED TO USE THE [facility], PT NURSE ADELSO NOTIFIED.
--- NOTE | 2018-06-22 08:58 | NUR ---
A [facility] CALLED TO VERIFY FAMILY HAS SPOKEN TO THEM AND REQUEST THEIR PARTICIPATION IN CARE OF PT. THEY HAVE BEEN CONTACTED BY PT DAUGHTER. WILL BE COMING TO VASCULAR TECHNOLOGIST SONOGRAPHER PT.
--- NOTE | 2018-06-22 10:58 | NUR ---
INVENTORY OF PATIENT BELONGINGS MADE BY PRIMARY NURSE ENMANUEL ESPINOSA AND INTERVENTIONAL NURSE COLLIN ESPINOSA. THE FOLLOWING ITEMS WERE FOUND IN PATIENT ROOM: UPPER AND LOWER DENTURE IN WHITE CONTAINER, PKG PINK 3D BUTTERFLIES; BOTTLE OF ALEVE, TUBE CORTIZONE 10, TUBE ASPERCREME, VASELINE LOTION BOTTLE, SMALL POT VASELINE JELLY, GREEN SPIRAL TRAMMELL RING WITH NO KEYS, LOCK INSERT AND 3 KEYS, 2 INK PENS, MAGNIFYING GLASS, Orange Health SolutionsGO CREIT CARD LETTER, LUDEN'S COUGH DROPS, EQUAGE COUGH DROPS, 1 DARK PURPLE SHOE STRING, 1 DARK ACEVEDO SHOE STRING, 1 LIGHT ACEVEDO SHOE STRING, MAROON COMB, BLACK SLIP ON SHOES, TOOTH BRUSH AND PASTE, LIGHT ACEVEDO JAY PANTS, BLACK SHIRT WITH COLLAR, GREEN VELVET SWEAT PANTS, BROWN ZIP HOODIE, BLACK BUTTON DOWN SHIRT, 1 PAIR PANTIES, REG T-SHIRT, BLACK PANTS ALL IN A GREEN CARRYALL BAG. ONE STUFFED BROWN GORILLA. DAUGHTER REQUESTS GORILLA BE SENT TO HOME AND MAILED TO HER.
--- NOTE | 2018-06-22 11:26 | NUR ---
PT PICKED UP BY HOME SHEET METAL ENGINEER. PT BELONGINGS SENT ALONG WITH HER
--- NOTE | 2018-06-22 13:57 | CN ---
PATIENT NAME:THADDEUS LIEBERMAN MEDICAL RECORD: [id number] : 40 LOCATION:[facility] ADMIT DATE: 06/07/18 ACCOUNT: [id number] CONSULTING PHYSICIAN: KASH RUIZ MD REFERRING PHYSICIAN: RENZO CÁRDENAS MD DATE OF CONSULTATION: 06/21/2018 IDENTIFYING DATA: Mrs. Lieberman is 77 years old and she is admitted to the hospital secondary to multifocal pneumonia, consistent with malignant disease. I have been asked to see her to evaluate her for competency. At 4 o'clock this afternoon, Thursday, June 21, she is nonresponsive and showing signs of agonal breathing. I have reviewed her medical record. Obviously, she is an extremely sick individual. It would appear that she is in the final stages of struggling with a disease she did not know she had for a long time. I will be happy to see her if she rallies and becomes more awake and coherent. Please reconsult if that occurs. TRANSINT:[id number] Voice Confirmation ID: [id number] DOCUMENT ID: [id number] KASH RUIZ MD at 1357 CC: [id number] DICTATION DATE: 06/21/18 1630 BREAKDOWN MAN: 06/21/182127 DIS IN 06/22/18 [facility] [address] [place] [address]
--- NOTE | 2018-06-22 16:42 | MORECARE ---
CASE MANAGEMENT DISCHARGE SUMMARY PATIENT: THADDEUS MAGDALENO UNIT: [id number] ADM DATE: 06/07/18 AGE: 77 : 40 SEX: F [facility]: [facility] AUTHOR: ESTEVAN,DOC PHYSICIAN: REFERRING PHYSICIAN: RENZO CÁRDENAS MD DATE OF SERVICE: 06/22/18 Discharge Plan Patient Name: THADDEUS MAGDALENO Facility: [facility]:[place] : 1940 Planned Disposition: Anticipated Discharge Date: Discharge Date: 06/22/2018 Expected LOS: Initial Reviewer: [email or web address] Initial Review Date: 06/15/2018 Generated: 06/22/18 5:41 pm Comments DCP- Discharge Planning Updated by [id number]: Amairani Funes on 06/20/18 5:[address] CONTACT PHONE NUMBERS MIGUEL MAGDALENO- DTR- [phone] OWEN- SON IN LAW- [phone] DCP- Discharge Planning Updated by [email or web address]: Amairani Funes on 06/20/18 4:[address] LATE ENTRY 1050 CM RECEIVED A TC FROM PRIMARY NURSE, GREGORY, REGARDING HOSPICE CONSULT. THE PATIENT'S DAUGHTER WAS LEAVING TO CATCH A FLIGHT IN ONE HOUR. CM INSTRUCTED THE NURSE TO OBTAIN CONTACT NAME AND PHONE NUMBER FOR THE FAMILY THE FACE SHEET ONLY HAS THE PATIENT'S CONTACT PHONE NUMBER. 1100 TC TO [facility], THE CONTRACTED [facility] PROVIDER FOR [facility]. 1113 REC CB FROM ANNIA, THE SCHEDULE HANGER NURSE. EXPLAINED THE REFERRAL. PROVIDED DX FOR HOSPICE REFERRAL. TRANSFERED HER DIRECTLY TO THE CVICU UNIT TO SPEAK TO THE FAMILY DUE TO TIME CONSTRAINT. FOLLOW UP TC BACK TO PRIMARY NURSE. SHE REPORTED A SILVIA CONTACT WAS ABLE TO SPEAK WITH THE FAMILY. THE DAUGHTER WAS RELUCTANT TO MAKE A SOLITARY DECISION. SHE WANTS OTHER FAMILY MEMBERS TO BE INVOLVED. REPORTEDLY OTHER FAMILY MEMBERS WILL BE ARRIVING. DCP- Discharge Planning Updated by [id number]: Radha Scott on 06/20/18 1:[address] Patient Name: THADDEUS MAGDALENO Admission Status: ER Accout number: [id number] Admission Date: 06-07-2018 : 1940 Admission Diagnosis:PNEUMONIA, UNSPECIFIED ORGANISM Attending: RENZO CÁRDENAS Current LOS: 13 Anticipated DC Date: Planned Disposition: Primary Insurance: MEDICARE A & B Discharge Planning Comments: CM SPOKE WITH NURSE, VI, ABOUT PATIENT. NURSE STATES [facility] CAME TO SEE THE PATIENT TODAY BUT THEN THE FAMILY REFUSED HOSPICE AND THE PATIENT IS REFUSING HOSPICE. CM TO FOLLOW AND ASSIST NEEDED WITH DC PLANNING/NEEDS. Lithographers Printer: Radha Scott DCP- Discharge Planning Updated by [id number]: Sugey Navas on 06/17/18 6:[address] CM spoke with daughter at this point it is uncertain if patient will survive for discharge. Nursing and Dr. Spence have spoke to patient and family regarding code status. Patient wants to be a DNI but does want CPR. Family from [place] never came. Daughter will be leaving Thursday for her home in [place]. CM will continue to follow and assist as needed with discharge planning / needs. DCP- Discharge Planning Updated by [id number]: Sugey Navas on 06/16/18 9:[address] CM spoke with patients daughter Miguel this am. We discussed options as far as discharge planning patient will probably need rehab and possibly termite control servicer care. Family is getting together later today to discuss where they may want things set up for. Patient closest relative lives in [place] family talking about finding placement for Rehab in [place] or locally. Miguel is going to let CM now the plan she would like for us to work toward after family discussion. CM will continue to follow and assist as needed with discharge planning / needs. DCP- Discharge Planning Updated by [email or web address]: Sugey Navas on 06/15/18 5:[address] Patient Name: THADDEUS MAGDALENO Admission Status: ER Accout number: [id number] Admission Date: 06-07-2018 : 1940 Admission Diagnosis:PNEUMONIA, UNSPECIFIED ORGANISM Attending: RENZO CÁRDENAS Current LOS: 8 Anticipated DC Date: Planned Disposition: Primary Insurance: MEDICARE A & B Discharge Planning Comments: CM met with patient and daughter at bedside. Patient states she doesn't know what or where she is going upon discharge. She states that prior to admission patient lived in a hotel with a friend and they worked there for payment of room and board. Hotel has been sold and she currently has no place to stay. Patient is refusing NH placement. Patient is requesting assistance with finding a prison apartment. Patient is refusing to move with daughter to [place]. The closest family member lives in [place] and will be here tomorrow. CM will try to check on availability of prison and low cost housing near by. CM will continue to follow and assist as needed with discharge planning / needs. Lithographers Printer: Sugey Navas DCPIA - Discharge Planning Initial Assessment Updated by [id number]: Sugey Navas on 06/15/18 6:07 pm * Is the patient Alert and Oriented? Yes * PCP no pcp * Pharmacy [facility] * Preadmission Environment Homeless * Other Environment PATIENT WAS LIVING IN [place] BUT IT HAS BEEN SOLD AND SHE CAN'T RETURN THERE * ADLs Independent * Equipment None * List name and contact numbers for known caregivers / representatives who currently or will assist patient after discharge: MIGUEL -DAUGHTER- [phone] OWEN - SON IN LAW - [phone] * Verbal permission to speak to the caregivers and representatives has been obtained from the patient. Yes * Community resources currently utilized None * Additional services required to return to the preadmission environment? No * Can the patient safely return to the preadmission environment? No * Has this patient been hospitalized within the prior 30 days at any hospital? No Last DP export: 06/20/18 5:15 p Patient Name: THADDEUS MAGDALENO Page 52350 at 1642 All edits/amendments must be made on the electronic document DICTATION DATE: 06/22/181640 OYSTER WORKER: CHAD 06/22/181640 RPT#: [id number] DC DATE:06/22/18 STATUS: DIS IN [facility] [address] [place] [address] END OF REPORT
--- NOTE | 2018-06-24 19:29 | OP ---
PATIENT NAME: THADDEUS MAGDALENO MEDICAL RECORD: [id number] :40 LOCATION:D.[facility]I D.CV04 ADMISSION DATE:06/07/18 SURGEON: JUDE YORK MD DATE OF OPERATION: 06/14/2018 SURGEON: Jude York MD [employer] OPERATOR: DEEPIKA Irving PROCEDURE PERFORMED: 1. Subxiphoid pericardial window. 2. Bronchoscopy. PREOPERATIVE DIAGNOSES: Pericardial effusion and lung mass. POSTOPERATIVE DIAGNOSES: Pericardial effusion and lung mass. ANESTHESIA: General endotracheal anesthesia. ESTIMATED BLOOD LOSS: Minimal. COMPLICATIONS: None. SPECIMENS: 1. A 1 x 1 cm pericardial biopsy for permanent pathology. 2. Pericardial fluid for cytology, chemistry, cell counts and cultures. CONDITION: Stable. DISPOSITION: [facility] ICU. OPERATIVE FINDINGS: 1. Transesophageal echocardiography revealed circumferential pericardial effusion, which was totally drained. 2. A 1000 cc serous pericardial fluid, the blood pressure increased about 20 after drainage. 3. Bronchoscopy with some external collapse of the airways, but no endobronchial lesions seen. 4. Attempted right subclavian central line, subclavian vein cannulated twice, but unable to thread the guidewire, internal jugular catheter placed by anesthesia. INDICATION: Pericardial effusion with dyspnea, lung mass. PROCEDURE IN DETAIL: The patient was brought to the operating suite in an upright position. General anesthetic was administered. The patient was then intubated. Blood pressure remained stable. The chest was prepped. Attempted subclavian venous cannulation was unsuccessful. Vertical incision was made over the xiphoid. Upward pressure on the left costal margin was made and the diaphragmatic surface of the pericardium was identified, incised and a liter of serous fluid was removed. A 1 x 1 cm pericardial biopsy was removed. Hemostasis was assured. Total fluid was removed. A drain was placed through a separate stab wound and on the diaphragmatic surface of the heart. The wound was irrigated and closed in 4 layers including Dermabond on the skin. Dressing was applied. OPERATIVE REPORT [id number] THADDEUS MAGDALENO Bronchoscopy was performed visualizing the trachea, miladys, mainstem and segmental bronchi with no obvious endobronchial lesions, but some external collapse, the tidal volume was then increased. The patient taken to [facility] ICU stable. TRANSINT:[id number] Voice Confirmation ID: [id number] DOCUMENT ID: [id number] 06/23/2018 Edited to correct name of surgeon and blood and plasma laboratory assistant, dmm. JUDE YORK MD at 1929 CC: AGUS GUERRERO MD, GAY MYRICK MD and JAMES ROMERO [id number] DICTATION DATE: 06/14/18 1516 WRITER EDITOR: 06/14/18 1744 DIS IN 06/22/18 [id number] [place] [address]
--- NOTE | 2018-07-05 16:30 | NUR ---
Per CMS protocol, restraint report logged into data base.
[2018-07-12 07:10] LABS: FUNGUS MYCOLOGY CULTURE Final report (())
== END 2018-06-22 12:14 | DRG 163 ==
LOC: D.ER 11:54 → D.CVICU 16:46 → D.EDHOLD 16:46 → D.M2 16:46 → D.CVICU 06-14 13:43
PROVIDERS: Family Medicine; General Practice; Internal Medicine Hematology & Oncology; Internal Medicine Pulmonary Disease; Thoracic Surgery (Cardiothoracic Vascular Surgery); ADMIT Internal Medicine Nephrology
PROC: 05HY33Z Insertion of Infusion Device into Upper Vein, Percutaneous Approach (ICD-10-PCS; 2018-06-10)
PROC: 0BJ08ZZ Inspection of Tracheobronchial Tree, Via Natural or Artificial Opening Endoscopic (ICD-10-PCS; 2018-06-14)
PROC: 0W9D0ZZ Drainage of Pericardial Cavity, Open Approach (ICD-10-PCS; principal; 2018-06-14 14:00)
PROC: 5A09357 Assistance with Respiratory Ventilation, Less than 24 Consecutive Hours, Continuous Positive Airway Pressure (ICD-10-PCS; 2018-06-19)
DX: J18.9 Pneumonia, unspecified organism (principal); J96.01 Acute respiratory failure with hypoxia; I26.99 Other pulmonary embolism without acute cor pulmonale; J96.02 Acute respiratory failure with hypercapnia; N17.0 Acute kidney failure with tubular necrosis; I50.31 Acute diastolic (congestive) heart failure; I31.3 Pericardial effusion (noninflammatory); J44.1 Chronic obstructive pulmonary disease with (acute) exacerbation; J44.0 Chronic obstructive pulmonary disease with (acute) lower respiratory infection; C78.2 Secondary malignant neoplasm of pleura; C77.9 Secondary and unspecified malignant neoplasm of lymph node, unspecified; C34.90 Malignant neoplasm of unspecified part of unspecified bronchus or lung; R91.8 Other nonspecific abnormal finding of lung field; R59.0 Localized enlarged lymph nodes; R00.0 Tachycardia, unspecified; I87.2 Venous insufficiency (chronic) (peripheral); I11.0 Hypertensive heart disease with heart failure; R68.0 Hypothermia, not associated with low environmental temperature; R53.81 Other malaise; R21 Rash and other nonspecific skin eruption; C80.1 Malignant (primary) neoplasm, unspecified